=== PATIENT | female | born 1980 | race Caucasian/White ===

== ENCOUNTER → 2018-10-16 10:54 | Outpatient (CLI) | payer OTHER, SELFPAY ==
[2017-10-08 06:17] VITALS: BMI 36.9
[2018-10-16 14:11] LABS: hCG Titer Quant., Serum 63 mIU/mL (<9 non-preg)
== END ==
PROVIDERS: Visit Provider Obstetrics & Gynecology
DX: O20.0 Threatened abortion (principal)
CPT/HCPCS: 84702; 84703

== ENCOUNTER → 2018-10-20 14:25 | Outpatient (CLI) | payer OTHER, SELFPAY ==
[2017-10-08 06:17] VITALS: BMI 36.9
[2018-10-20 18:15] LABS: hCG Titer Quant., Serum 68 mIU/mL (<9 non-preg)
== END ==
PROVIDERS: Visit Provider Obstetrics & Gynecology
DX: O03.9 Complete or unspecified spontaneous abortion without complication (principal)
CPT/HCPCS: 36415; 84702

== ENCOUNTER → 2018-10-22 15:10 | Outpatient (CLI) | payer OTHER, SELFPAY ==
[2017-10-08 06:17] VITALS: BMI 36.9
[2018-10-22 16:22] LABS: hCG Titer Quant., Serum 107 mIU/mL (<9 non-preg)
--- OUTSIDE RECORDS SUMMARY | 2018-12-27 14:28 | XMS RPT_ITS ---
:1980 Author Organization [facility] Care Team Providers Name Role Phone Margy Arzola Attending Unavailable Primay Care Physicia, No Primary Care Unavailable Margy Arzola Attending Unavailable Primay Care Physicia, No Primary Care Unavailable Dariusz, Margy Attending Unavailable Primay Care Physicia, No Primary Care Unavailable Lizs, Margy Attending Unavailable Primay Care Physicia, No Primary Care Unavailable Lizs, Margy Attending Unavailable Primay Care Physicia, No Primary Care Unavailable PROBLEMS PROBLEMS No Problem Records FoundPROCEDURES PROCEDURES No Procedure Records FoundRESULTS RESULTS CBC-COMPLETE BLOOD CNT Collected: 10/31/2018 Status: F Source: FANNY NO DIFF 11:40 AM [facility] REPOSITORY TYPE CODE TESTS RESULT OUT OF RANGE REFERENCE UNITS LAB L100.1000 4.4-11.0 K/mm3 Low WBC 3.8 LAB L100.1200 4.2-5.4 M/mm3 Normal RBC 4.65 LAB L100.1300 12.0-15.0 g/dl Normal HGB 13.1 LAB L100.1400 37-47 % Normal HCT 40.0 LAB L100.1500 81-99 fL Normal MCV 86.0 LAB L100.1600 27.0-32.0 pg Normal MCH 28.2 LAB L100.1700 32-36 g/gl Normal MCHC 32.8 LAB L100.1810 11.6-14.6 % Normal RDW CV 12.9 LAB L100.1820 35.1-43.9 fl Normal RDW SD 40.5 LAB L100.1900 150-450 K/mm3 Normal PLT 215 LAB L100.2000 6.2-12.0 fl Normal MPV 8.8 Performed By: #### L100.0500 #### [facility] [address] [place], [address] HCG TITER QUANT., Collected: 10/31/2018 Status: F Source: FANNY SERUM 11:40 AM [facility] REPOSITORY TYPE CODE TESTS RESULT OUT OF RANGE REFERENCE UNITS LAB L700.8000 <9 non-preg mIU/mL High HCG 523 QUANT. Performed By: #### L700.8000 #### [facility] [address] [place], [address] COMPREHENSIVE METABOLIC Collected: 10/31/2018 Status: F Source: FANNY SARABIA 11:40 AM [facility] REPOSITORY TYPE CODE TESTS RESULT OUT OF RANGE REFERENCE UNITS LAB L501.0100 74-106 mg/dL Normal GLU 87 Result Comment: Please note revised GLUCOSE reference range effective 2017. LAB L501.1000 7-18 mg/dL Normal BUN 11 LAB L501.1100 0.55-1.02 mg/dL Normal CREAT,SERUM 0.78 Result Comment: The validity of the calculated GFR AND GFRAA in patients over 70 years has not been determined. Clinical correlation is essential. LAB L501.1110 >60 mL/min Normal EST GFR 87 Result Comment: Non- GFR Calc LAB L501.1115 >60 mL/min Normal EST GFR - AA 105 Result Comment: GFR Calc LAB L501.1255 ml/min Normal Estimated CRCL 91.55 LAB L501.1300 10-20 RATIO Normal BUN/CRE 14.0 LAB L501.1500 6.4-8. g/dL Normal 2 T PROT 7.6 LAB L501.1800 3.2-5. g/dL Normal 0 ALB 4.2 LAB L501.1950 2.2-4. g/dL Normal 2 GLOB 3.4 LAB L501.2000 0.9-2. RATIO Normal 4 A/G 1.2 LAB L501.2200 8.5-10 mg/dL Low .1 CA 8.4 LAB L501.4100 15-37 U/L Normal AST 24 LAB L501.4305 45-117 U/L Normal ALK P 107 LAB L501.4405 13-56 U/L Normal ALT 36 LAB L501.4600 0.20-1 mg/dL Normal .00 T BILI 0.30 LAB L501.5300 136-14 mmol/L Normal 5 NA 139 LAB L501.5600 3.5-5. mmol/L Normal 1 K 3.7 LAB L501.5900 98-107 mmol/L Normal CL 106 LAB L501.6100 21.0-3 mmol/L Normal 2.0 CO2 26.0 LAB L501.6200 5-15 Normal GAP 7 Performed By: #### L500.4050 #### [facility] [address] [place], [address] HCG TITER QUANT., Collected: 10/29/2018 Status: F Source: FANNY SERUM 8:35 AM [facility] REPOSITORY TYPE CODE TESTS RESULT OUT OF RANGE REFERENCE UNITS LAB L700.8000 <9 non-preg mIU/mL High HCG 384 QUANT. Performed By: #### L700.8000 #### [facility] [address] [place], [address] HCG TITER QUANT., Collected: 10/22/2018 Status: F Source: FANNY SERUM 3:13 PM [facility] REPOSITORY TYPE CODE TESTS RESULT OUT OF RANGE REFERENCE UNITS LAB L700.8000 <9 non-preg mIU/mL High HCG 107 QUANT. Performed By: #### L700.8000 #### [facility] [address] [place], [address] HCG TITER QUANT., Collected: 10/20/2018 Status: F Source: FANNY SERUM 2:28 PM [facility] REPOSITORY TYPE CODE TESTS RESULT OUT OF RANGE REFERENCE UNITS LAB L700.8000 <9 non-preg mIU/mL High HCG 68 QUANT. Performed By: #### L700.8000 #### [facility] [address] [place], [address] HCG TITER QUANT., Collected: 10/16/2018 Status: F Source: FANNY SERUM 9:20 AM [facility] REPOSITORY TYPE CODE TESTS RESULT OUT OF RANGE REFERENCE UNITS LAB L700.8000 <9 non-preg mIU/mL High HCG 63 QUANT. Performed By: #### L700.8000 #### [facility] [address] [place], [address] ALLERGIES ALLERGIES DATE TYPE / CODE NAME / CODE REACTION SEVERITY SOURCE 10/08/2017 Drug No Known Unknown [facility] Allergy/4160 Allergies/F00 [facility] [address](SNOMED 4891967(RXNOR Repository CT) M) ENCOUNTERS ENCOUNTERS ADMIT/DISCHARGE ACCOUNT ADMITTING ENCOUNTER LOCATION SOURCE NUMBER CLASS 10/31/2018 [id number] Ambulatory [address] ing:WOBLAB Repository 10/29/2018 [id number] Ambulatory Markle Markle 4 [facility] ing:WOBLAB Repository 10/22/2018 [id number] Ambulatory Fanny Fanny 7 [facility] ing:WOBL[place] Repository 10/20/2018 [id number] Ambulatory Fanny Fanny 3 [facility] ing:[place] Repository 10/16/2018 [id number] Ambulatory Markle Markle 8 [facility] ing:LABSPEC Repository PAYERS PAYERS ENCOUNTER GUARANTOR PAYER SUBSCRIBER SOURCE 10/31/2018 Temi Mejia Primary Insurance:[facility] Liu Wolff [id number] [facility]: [address] Number: Repository [id number]: [phone]) [id number] [phone] (HP) Date:0503-04-15EX [address] [address], [place] [address]CT: CHECK WEBSITE 10/31/2018 Secondary NOT GIVENUNK Markle Insurance:SELF PAY [facility] Number: Effective Repository Date:2018-10-31 10/29/2018 Temi Mejia Primary Insurance:[facility] Liu Wolff [id number] [facility]: [address] Number: Repository [id number]: ([phone]) [id number] [phone] (HP) Date:0513-25-99XY [address] [address], [place] [address]QN: CHECK WEBSITE 10/29/2018 Secondary NOT GIVENUNK Fanny Insurance:SELF PAY [facility] Number: Effective Repository Date:2018-10-29 10/22/2018 Temi Mejia Primary Insurance:[facility] Liu Vegaer1350 [facility]: [address] Number: Repository [id number]: [phone]) [id number] [phone] (HP) Date:0907-06-80TL [address] [address], [place] [address]SF: CHECK WEBSITE 10/22/2018 Secondary NOT GIVENUNK Markle Insurance:SELF PAY [facility] Number: Effective Repository Date:2018-10-22 10/20/2018 Temi Mejia Primary Insurance:[facility] Liu Wolff [id number] [facility] Hospital[facility] [id number] Number: Repository [address]Zkx: [phone] [id number] [phone] () Date:8344-96-49JM [address] [address]ED[place]VLB, [place] [address]JW: CHECK WEBSITE 10/20/2018 Secondary NOT GIVENUNK Markle Insurance:SELF PAY [facility] Number: Effective Repository Date:2018-10-20 10/16/2018 Temi Mejia Primary Insurance:[facility] Liu Wolff [id number] [facility] Hospital[facility]: [facility] [id number] Number: Repository [id number]: ([phone] [id number] [phone] () Date:1625-70-93QV [address] [address], [place] [address]PF: CHECK WEBSITE 10/16/2018 Secondary NOT GIVENUNK Fanny Insurance:SELF PAY [facility] Number: Effective Repository Date:2018-10-16
== END ==
PROVIDERS: Visit Provider Obstetrics & Gynecology
DX: O03.9 Complete or unspecified spontaneous abortion without complication (principal)
CPT/HCPCS: 36415; 84702

== ENCOUNTER → 2018-10-29 08:32 | Outpatient (CLI) | payer OTHER, SELFPAY ==
[2018-10-29 11:01] LABS: hCG Titer Quant., Serum 384 mIU/mL (<9 non-preg)
--- OUTSIDE RECORDS SUMMARY | 2018-12-31 03:32 | XMS RPT_ITS ---
[...] F Source: FANNY NO DIFF 11:40 AM [facility] REPOSITORY TYPE CODE TESTS RESULT OUT OF [...] MPV 8.8 Performed By: #### L100.0500 #### [facility] [address] [place], [address] HCG TITER QUANT., Collected: 10/31/2018 Status: F Source: FANNY SERUM 11:40 AM [facility] REPOSITORY TYPE CODE TESTS RESULT OUT OF RANGE REFERENCE UNITS LAB L700.8000 <9 non-preg mIU/mL High HCG 523 QUANT. Performed By: #### L700.8000 #### [facility] [address] [place], [address] COMPREHENSIVE METABOLIC Collected: 10/31/2018 Status: F Source: FANNY SARABIA 11:40 AM [facility] REPOSITORY TYPE CODE TESTS RESULT OUT OF [...] GAP 7 Performed By: #### L500.4050 #### [facility] [address] [place], [address] HCG TITER QUANT., Collected: 10/29/2018 Status: F Source: FANNY SERUM 8:35 AM [facility] REPOSITORY TYPE CODE TESTS RESULT OUT OF RANGE REFERENCE UNITS LAB L700.8000 <9 non-preg mIU/mL High HCG 384 QUANT. Performed By: #### L700.8000 #### [facility] [address] [place], [address] HCG TITER QUANT., Collected: 10/22/2018 Status: F Source: FANNY SERUM 3:13 PM [facility] REPOSITORY TYPE CODE TESTS RESULT OUT OF RANGE REFERENCE UNITS LAB L700.8000 <9 non-preg mIU/mL High HCG 107 QUANT. Performed By: #### L700.8000 #### [facility] [address] [place], [address] HCG TITER QUANT., Collected: 10/20/2018 Status: F Source: FANNY SERUM 2:28 PM [facility] REPOSITORY TYPE CODE TESTS RESULT OUT OF RANGE REFERENCE UNITS LAB L700.8000 <9 non-preg mIU/mL High HCG 68 QUANT. Performed By: #### L700.8000 #### [facility] [address] [place], [address] HCG TITER QUANT., Collected: 10/16/2018 Status: F Source: FANNY SERUM 9:20 AM [facility] REPOSITORY TYPE CODE TESTS RESULT OUT OF RANGE REFERENCE UNITS LAB L700.8000 <9 non-preg mIU/mL High HCG 63 QUANT. Performed By: #### L700.8000 #### [facility] [address] [place], [address] ALLERGIES ALLERGIES DATE TYPE / CODE NAME / CODE REACTION SEVERITY SOURCE 10/08/2017 Drug No Known Unknown [facility] Allergy/4160 Allergies/F00 [facility] [address](SNOMED [id number](RXNOR Repository CT) M) ENCOUNTERS ENCOUNTERS ADMIT/DISCHARGE ACCOUNT ADMITTING ENCOUNTER LOCATION SOURCE NUMBER CLASS 10/31/2018 [id number] Ambulatory [address] ing:[place] Repository 10/29/2018 [id number] Ambulatory Dudley Dudley 4 [facility] ing:WOBLAB Repository 10/22/2018 [id number] Ambulatory Fanny Fanny 7 [facility] ing:WOBLAB Repository 10/20/2018 [id number] Ambulatory Fanny Fanny 3 [facility] ing:WOBLAB Repository 10/16/2018 [id number] Ambulatory Dudley Dudley 8 [facility] ing:LABSPEC Repository PAYERS PAYERS ENCOUNTER GUARANTOR PAYER SUBSCRIBER SOURCE 10/31/2018 Temi Mejia Primary Insurance:[facility] Liu Wolff [id number] [facility]: [address] Number: Repository [id number]: [phone] [id number] [phone] (HP) Date:1878-40-99SZ [address] [address]FC, [place] [address]HO: CHECK WEBSITE 10/31/2018 Secondary NOT GIVENUNK Dudley Insurance:SELF PAY [facility] Number: Effective Repository Date:2018-10-31 10/29/2018 Temi Mejia Primary Insurance:[facility] Liu Wolff [id number] [facility]: [address] Number: Repository [id number]: ([phone]) [id number] [phone] (HP) Date:7405-48-10DP [address] [address]LG, [place] [address]ZY: CHECK WEBSITE 10/29/2018 Secondary NOT GIVENUNK Fanny Insurance:SELF PAY [facility] Number: Effective Repository Date:2018-10-29 10/22/2018 Temi Mejia Primary Insurance:[facility] Liu Vegaer1350 [facility]: [address] Number: Repository [id number]: [phone]) [id number] [phone] (HP) Date:8762-78-34YG [address] [address]JDT, [place] [address]AA: CHECK WEBSITE 10/22/2018 Secondary NOT GIVENUNK Dudley Insurance:SELF PAY [facility] Number: Effective Repository Date:2018-10-22 10/20/2018 Temi Mejia Primary Insurance:[facility] Liu Wolff [id number] [facility] [id number] Number: Repository [address]Bce: [phone] [id number] [phone] () Date:9984-82-08FN [address] [address]SQVG[place], [place] [address]RJ: CHECK WEBSITE 10/20/2018 Secondary NOT GIVENUNK Dudley Insurance:SELF PAY [facility] Number: Effective Repository Date:2018-10-20 10/16/2018 Temi eMjia Primary Insurance:[facility] Liu Wolff [id number] [facility] [id number] Number: Repository [id number]: ([phone]) [id number] [phone] () Date:6366-70-16KO [address] [address]XBFAFTZMJ, [place] [address]HL: CHECK WEBSITE 10/16/2018 Secondary NOT GIVENUNK Fanny Insurance:SELF PAY [facility] Number: Effective Repository Date:2018-10-16
== END ==
PROVIDERS: Visit Provider Obstetrics & Gynecology
DX: R10.9 Unspecified abdominal pain (principal)
CPT/HCPCS: 36415; 84702

== ENCOUNTER → 2018-10-31 11:32 | Outpatient (CLI) | payer OTHER, SELFPAY ==
[2018-10-31 11:53] LABS: Hemoglobin 13.1 g/dl (12.0-15.0); Mean Corp Hgb Conc 32.8 g/gl (32-36); Mean Corpuscular Hgb 28.2 pg (27.0-32.0); Mean Platelet Vol. 8.8 fl (6.2-12.0); Platelet Count 215 K/mm3 (150-450); RBC Distribution Width CV 12.9 % (11.6-14.6); RBC Distribution Width SD 40.5 fl (35.1-43.9); Red Blood Count 4.65 M/mm3 (4.2-5.4); White Blood Count 3.8 K/mm3 (4.4-11.0)
[2018-10-31 11:56] LABS: Scan Indicated on CBC? Y/N NO
[2018-10-31 12:35] LABS: hCG Titer Quant., Serum 523 mIU/mL (<9 non-preg)
[2018-10-31 12:36] LABS: ALB/GLOB Ratio 1.2 RATIO (0.9-2.4); AST(SGOT) 24 U/L (15-37); Alanine Aminotransfer ALT/SGPT 36 U/L (13-56); Albumin, Serum 4.2 g/dL (3.2-5.0); Alkaline Phosphatase 107 U/L (45-117); Anion Gap 7 (5-15); BUN 11 mg/dL (7-18); Calcium,Total 8.4 mg/dL (8.5-10.1); Chloride 106 mmol/L (98-107); Creatinine, Serum 0.78 mg/dL (0.55-1.02); EST Glomerular Filtration Rate 87 mL/min (>60); Est Glom Filt Rate - Afr Amer 105 mL/min (>60); Estimated Creatinine Clearance 91.55 ml/min; Globulin 3.4 g/dL (2.2-4.2); Glucose 87 mg/dL (74-106); Potassium 3.7 mmol/L (3.5-5.1); Protein, Total 7.6 g/dL (6.4-8.2); Sodium Level 139 mmol/L (136-145)
== END ==
PROVIDERS: Visit Provider Obstetrics & Gynecology
DX: O00.90 Unspecified ectopic pregnancy without intrauterine pregnancy (principal); Z3A.00 Weeks of gestation of pregnancy not specified
CPT/HCPCS: 36415; 80053; 84702; 85027

== ENCOUNTER → 2018-11-06 13:18 | Outpatient (CLI) | payer OTHER, SELFPAY ==
[2018-11-06 17:25] LABS: Hematocrit 38.8 % (37-47); Hemoglobin 12.7 g/dl (12.0-15.0); Mean Corp Hgb Conc 32.7 g/gl (32-36); Mean Corpuscular Hgb 28.1 pg (27.0-32.0); Mean Corpuscular Volume 85.8 fL (81-99); Mean Platelet Vol. 9.5 fl (6.2-12.0); Platelet Count 230 K/mm3 (150-450); RBC Distribution Width CV 12.6 % (11.6-14.6); RBC Distribution Width SD 39.2 fl (35.1-43.9); Red Blood Count 4.52 M/mm3 (4.2-5.4)
[2018-11-06 17:27] LABS: Scan Indicated on CBC? Y/N NO
[2018-11-06 17:30] LABS: Alanine Aminotransfer ALT/SGPT 38 U/L (13-56); Creatinine, Serum 0.88 mg/dL (0.55-1.02); EST Glomerular Filtration Rate 76 mL/min (>60); Est Glom Filt Rate - Afr Amer 92 mL/min (>60)
[2018-11-06 17:46] LABS: hCG Titer Quant., Serum 590 mIU/mL (<9 non-preg)
== END ==
PROVIDERS: Visit Provider Obstetrics & Gynecology
DX: O00.90 Unspecified ectopic pregnancy without intrauterine pregnancy (principal)
CPT/HCPCS: 36415; 82565; 84460; 84702; 84703; 85027

== ENCOUNTER → 2018-11-07 13:58 | Outpatient (CLI) | payer OTHER, SELFPAY ==
[2017-10-08 06:17] VITALS: BMI 36.9
[2018-11-07 14:53] LABS: hCG Titer Quant., Serum 555 mIU/mL (<9 non-preg)
== END ==
PROVIDERS: Visit Provider Obstetrics & Gynecology
DX: O00.90 Unspecified ectopic pregnancy without intrauterine pregnancy (principal); Z3A.00 Weeks of gestation of pregnancy not specified
CPT/HCPCS: 36415; 84702

== ENCOUNTER 2018-11-09 07:39 | Emergency (ER) | payer OTHER, SELFPAY ==
[2018-11-09 07:40] VITALS: BP 158/94; PULSE 99; RESP 16; TEMP 36.8; O2SAT 99; BMI 36.0
--- NOTE | 2018-11-09 08:05 | ED.VISSUMM ---
- ER Visit Summary Date of Service: 11/09/18 Chief Complaint: [] Ectopic on methotrexate therapy x2, vaginal bleeding pain to the left lower abdomen History of Present Illness: The patient is a 38 F [] history of ectopic diagnosed about 2 weeks ago when she was 7 weeks , her last quant hCG was 500, she was given methotrexate second dose IM Saturday she has had persistence of vaginal spotting and now the bleeding is slightly heavier she noticed a vague pain to the left side of the abdomen the pain was not severe just persistent, no vomiting no fever no cough she is followed by [employer] Dr. Arzola she came in for evaluation Physical Examination: [] Vital signs are within normal range General, no distress resting comfortably HEENT is generally unremarkable The neck is supple no adenopathy Cardiovascular, regular rate and rhythm Lungs, clear bilateral Abdomen, soft nontender, to deep aggressive palpation is really no findings to the left suprapubic or right lower quadrant or anywhere in the abdomen the flank is unremarkable, pelvic exam deferred at this time no pelvic room Extremities, no clubbing cyanosis or edema Neurologic, awake alert answering questions appropriately moving all 4 extremities Test Results: [] Emergency Department Course and Treatment: [] Clinically she looks well given her complaints screening labs are obtained ultrasound and will discuss with [employer] Screening labs CBC chemistry unremarkable, hCG quant 400, pelvic ultrasound per radiology shows fracture of the questionably represents gestational sac 7 weeks level of cervix right and left adnexa unremarkable, no free pelvic fluid, no pelvic masses otherwise, Spoke with [employer] on-call for patient discussed the case in detail they are comfortable with discharge home follow-up in the office the next few days patient believes she is scheduled to see them tomorrow, she will be given Floyd No. 4 tablets to use as needed, but she indicates actually she is feeling better and does not think she will need that medicine and agrees to follow-up and return for change in symptoms Treatment Plan: [] Disposition: [] Home stable Impression: [] Vaginal bleeding, , currently under treatment for ectopic This note was generated with [employer] software. It may contain incorrect words, spelling, and punctuation that were not noted in review of the chart prior to signing ED Disposition - Plan for ED Patient: Referrals: Care Physician,No Primary [Primary Care Provider] -
[2018-11-09 08:10] LABS: Absolute Lymphocyte Count 1.57 X10^3/ul (0.83-4.51); Absolute Neutrophil Count 2.5 X10^3/uL (2.0-7.7); Eosinophil# 0.13 X10^3/uL; Eosinophils% 2.9 % (0-5); Hematocrit 37.7 % (37-47); Hemoglobin 13.2 g/dl (12.0-15.0); Lymphocyte # 1.57 X10^3/ul (4.0); Lymphocyte % 35.4 % (19-41); Mean Corpuscular Hgb 29.7 pg (27.0-32.0); Mean Corpuscular Volume 84.7 fL (81-99); Mean Platelet Vol. 8.5 fl (6.2-12.0); Monocyte# 0.23 X10^3/uL; Monocyte% 5.2 % (0-10); Neutrophil % 56.3 % (47-70); Platelet Count 211 K/mm3 (150-450); RBC Distribution Width CV 12.3 % (11.6-14.6); RBC Distribution Width SD 37.1 fl (35.1-43.9); Red Blood Count 4.45 M/mm3 (4.2-5.4); White Blood Count 4.4 K/mm3 (4.4-11.0)
[2018-11-09 08:11] LABS: POSITIVE COUNT NO; POSITIVE DIFFERENTIAL NO; POSITIVE MORPHOLOGY NO
[2018-11-09] MEDS: 0.9% Normal Saline 1,000 ML 1000 ML IV (08:20)
[2018-11-09] MEDS: Ondansetron 4 MG/2 ML Vial IV (08:20)
[2018-11-09 08:28] LABS: Anion Gap 8 (5-15); BUN 10 mg/dL (7-18); Calcium,Total 8.7 mg/dL (8.5-10.1); Chloride 107 mmol/L (98-107); Creatinine, Serum 0.83 mg/dL (0.55-1.02); EST Glomerular Filtration Rate 82 mL/min (>60); Est Glom Filt Rate - Afr Amer 99 mL/min (>60); Estimated Creatinine Clearance 89.37 ml/min; Glucose 91 mg/dL (74-106); Potassium 3.9 mmol/L (3.5-5.1); Sodium Level 142 mmol/L (136-145)
--- NOTE | 2018-11-09 08:31 | US_ITS ---
STUDY: FIRST TRIMESTER OBSTETRICAL ULTRASOUND REASON FOR EXAM: Female, 38 years old. Bleeding. Possible ectopic . LMP: 09/02/2018. TECHNIQUE: Transvaginal TECHNICAL QUALITY: Adequate. PRIOR ULTRASOUND: None. FINDINGS: There is a fluid collection in the cervical region measuring about 7 mm which could represent gestational sac. There is no demonstrated yolk sac. The placenta is non-visualized. There is an echogenic structure within it which could represent pole measuring about 7 mm crown-rump length corresponding to approximately 6 weeks and 5 days. No cardiac activity is noted. The estimated gestation age (EGA) by LMP is 9 weeks, 5 days. The estimated date of delivery (KHADRA) by LMP is 06/09/2019. The estimated gestation age (EGA) by US is 9 weeks, 4 days. The estimated date of delivery (KHADRA) by US is 07/01/2019. The uterus measures 9.7 x 5.6 x 4.3 cm. There is no demonstrated uterine fibroid. The right ovary measures 3.8 x 2.1 x 2 cm. There is no right ovarian cyst. There is no visualized right adnexal mass or complex lesion. The left ovary measures 5.2 x 4.4 x 2.8 cm. There is a 3.2 x 3 x 3.1 cm cyst in the left ovary. There is another cyst measuring about 2.2 x 1.9 x 2.1 cm. There is no visualized left adnexal mass or complex lesion. There is minimal fluid in the cul de sac. US/Transvaginal w/Preg US IMPRESSION: 1. Findings consistent with gestational sac in the cervical region with pole corresponding to approximately 6 weeks and 4 days however no cardiac activity is seen. 2. Correlation with beta-hCG levels and close follow-up examination are recommended. 3. Left ovarian cysts. Electronically Signed: Rik Nicole MD at 11:15 EST Tel , Service support ,
[2018-11-09 08:37] LABS: hCG Titer Quant., Serum 409 mIU/mL (<9 non-preg)
[2018-11-09] MEDS: morphine 8 MG/ML Syringe IV (08:56)
[2018-11-09] MEDS: proMETHazine 25 MG/ML Syringe 12.5 MG IV (09:30)
[2018-11-09 09:32] VITALS: BP 139/81; PULSE 87; RESP 20; O2SAT 98
[2018-11-09 10:43] LABS: Bacteria 0 SEEN /hpf (None Seen); Mucous, Urine 0 SEEN /hpf (<or=2+); White Blood Cells 0 SEEN /hpf (0-5)
[2018-11-09 10:46] LABS: Color, Urine Yellow (Yellow); Glucose, Dipstick Normal (Normal); Ketone-Dipstick Negative (Negative); Leukocyte Esterase-Dipstick 25 /ul (Negative); Nitrite-Dipstick Negative (Negative); Occult Blood-Urine 250 /ul (Negative); Protein-Dipstick 30 mg/dl (Negative); Urine Bilirubin Dipstick Negative (Negative); Urine Clarity Cloudy (Clear); Urine Urobilinogen Normal (Normal)
[2018-11-09 10:56] LABS: Red Blood Cells-Urine > 100 SEEN /hpf (0-5); Squamous Epithelial Cells - UA 0-5 SEEN /hpf (5-10)
[2018-11-09 11:13] VITALS: BP 142/75; PULSE 76; RESP 16
--- NOTE | 2018-11-09 11:44 | ED.DEP ---
ED Disposition - Plan for ED Patient: Instructions: ED Miscarriage Incom Prescriptions: Hydrocodone Bitart/Apap 5-325 [[place] 5MG-325MG] 1 tab PO Q4H PRN PRN 2 Days #7 tab PRN Reason: Pain Referrals: Care Physician,No Primary [Primary Care Provider] -
--- NOTE | 2018-11-09 12:02 | DCINST.ED_ITS ---
ED Disposition - Plan for ED Patient: Instructions: ED Miscarriage Incom Prescriptions: Hydrocodone Bitart/Apap 5-325 [[place] 5MG-325MG] 1 tab PO Q4H PRN PRN 2 Days #7 tab PRN Reason: Pain Ondansetron [Zofran Odt] 4 mg PO Q8H PRN PRN #10 tablet PRN Reason: Nausea Referrals: Care Physician,No Primary [Primary Care Provider] -
== END 2018-11-09 12:13 | disposition home or self-care (01) ==
LOC: ED 08:23
PROVIDERS: Emergency Provider Emergency Medicine
DX: O00.90 Unspecified ectopic pregnancy without intrauterine pregnancy (principal); O08.89 Other complications following an ectopic and molar pregnancy; Z3A.08 8 weeks gestation of pregnancy
CPT/HCPCS: 76817; 80048; 81001; 84702; 85025; 87086; 87088; 96361; 96374; 96375; 99283; A4216; J2405

== ENCOUNTER → 2018-11-10 09:43 | Outpatient (CLI) | payer OTHER, SELFPAY ==
[2018-11-09 07:40] VITALS: BMI 36.0
[2018-11-10 13:23] LABS: hCG Titer Quant., Serum 339 mIU/mL (<9 non-preg)
== END ==
PROVIDERS: Visit Provider Obstetrics & Gynecology
DX: O00.90 Unspecified ectopic pregnancy without intrauterine pregnancy (principal); Z3A.00 Weeks of gestation of pregnancy not specified
CPT/HCPCS: 36415; 84702; 84703

== ENCOUNTER → 2018-11-13 15:05 | Outpatient (CLI) | payer OTHER, SELFPAY ==
[2018-11-09 07:40] VITALS: BMI 36.0
[2018-11-13 17:20] LABS: Hematocrit 38.3 % (37-47); Hemoglobin 12.5 g/dl (12.0-15.0); Mean Corp Hgb Conc 32.6 g/gl (32-36); Mean Corpuscular Hgb 28.5 pg (27.0-32.0); Mean Corpuscular Volume 87.2 fL (81-99); Mean Platelet Vol. 9.6 fl (6.2-12.0); Platelet Count 237 K/mm3 (150-450); RBC Distribution Width CV 12.4 % (11.6-14.6); RBC Distribution Width SD 37.7 fl (35.1-43.9); Red Blood Count 4.39 M/mm3 (4.2-5.4); White Blood Count 5.8 K/mm3 (4.4-11.0)
[2018-11-13 17:21] LABS: Scan Indicated on CBC? Y/N NO
[2018-11-13 17:34] LABS: AST(SGOT) 29 U/L (15-37); Alanine Aminotransfer ALT/SGPT 68 U/L (13-56); Creatinine, Serum 0.95 mg/dL (0.55-1.02); EST Glomerular Filtration Rate 70 mL/min (>60); Est Glom Filt Rate - Afr Amer 85 mL/min (>60)
[2018-11-13 18:11] LABS: hCG Titer Quant., Serum 176 mIU/mL (<9 non-preg)
== END ==
PROVIDERS: Visit Provider Obstetrics & Gynecology
DX: O00.90 Unspecified ectopic pregnancy without intrauterine pregnancy (principal)
CPT/HCPCS: 36415; 82565; 84450; 84460; 84702; 85027

== ENCOUNTER → 2018-11-20 15:11 | Outpatient (CLI) | payer OTHER, SELFPAY ==
[2018-11-09 07:40] VITALS: BMI 36.0
[2018-11-20 17:17] LABS: hCG Titer Quant., Serum 53 mIU/mL (<9 non-preg)
== END ==
PROVIDERS: Visit Provider Obstetrics & Gynecology
DX: O00.90 Unspecified ectopic pregnancy without intrauterine pregnancy (principal)
CPT/HCPCS: 36415; 84702

== ENCOUNTER → 2018-11-27 15:19 | Outpatient (CLI) | payer OTHER, SELFPAY ==
[2018-11-09 07:40] VITALS: BMI 36.0
[2018-11-27 17:36] LABS: hCG Titer Quant., Serum 36 mIU/mL (<9 non-preg)
== END ==
PROVIDERS: Visit Provider Obstetrics & Gynecology
DX: O00.90 Unspecified ectopic pregnancy without intrauterine pregnancy (principal)
CPT/HCPCS: 84702

== ENCOUNTER → 2018-12-06 12:18 | Outpatient (CLI) | payer OTHER, SELFPAY ==
[2018-11-09 07:40] VITALS: BMI 36.0
[2018-12-06 12:59] LABS: hCG Titer Quant., Serum 1 mIU/mL (<9 non-preg)
== END ==
PROVIDERS: Referring Provider Obstetrics & Gynecology; Visit Provider Obstetrics & Gynecology
DX: O00.90 Unspecified ectopic pregnancy without intrauterine pregnancy (principal); Z3A.00 Weeks of gestation of pregnancy not specified
CPT/HCPCS: 36415; 84702

== ENCOUNTER → 2020-04-20 16:49 | Outpatient (CLI) | payer OTHER, SELFPAY ==
[2020-04-20 13:42] VITALS: BMI 36.0
[2020-04-27 09:41] LABS: HPV APTIMA, High Risk Negative (Negative)
== END ==
PROVIDERS: Referring Provider Nurse Practitioner Women's Health; Visit Provider Nurse Practitioner Women's Health
DX: Z12.4 Encounter for screening for malignant neoplasm of cervix (principal)
CPT/HCPCS: 87624; 88175; G0145

== ENCOUNTER → 2020-04-25 16:31 | Outpatient (CLI) | payer OTHER, SELFPAY ==
[2020-04-20 13:42] VITALS: BMI 36.0
--- NOTE | 2020-04-25 16:32 | US_ITS ---
STUDY: ULTRASOUND OF THE FEMALE PELVIS - COMPLETE REASON FOR EXAM: Female, 39 years old. Enlarged uterus palpated by doctor. LMP: April 06, 2020. TECHNIQUE: Transabdominal and Transvaginal TECHNICAL QUALITY: Adequate. COMPARISON: None. FINDINGS: The uterus is anteverted and is in a midline position. The uterus measures 9.7 x 5.7 x 4.6 cm. There is a Nabothian cyst of the cervix. There is a septated versus arcuate uterus. The endometrium measures 10 mm in thickness, and is hyperechoic. There is no demonstrated endometrial mass. There is no demonstrated myometrial mass. I.U.D. - The patient does not have an I.U.D. The right ovary is visualized. The right ovary measures 3.5 x 3.4 x 2.4 cm. There are multiple follicles of the right ovary with a dominant 2.0 x 1.5 x 1.5 cm cyst. There is no visualized right adnexal mass or complex lesion. There is normal arterial and normal venous vascularity. The left ovary is visualized. The left ovary measures 14.6 x 14.0 x 7.9 cm. There are multiple ovarian cysts. The largest measures 8.6 x 12.8 x 8.2 cm. There is no visualized left adnexal mass or complex lesion. There is normal arterial and normal venous vascularity. There is minimal fluid in the cul-de-sac. The pre void volume of the bladder was 114 ml. The urinary bladder appears grossly normal. Polycystic ovary disease: No. US/Pelvic (Non ) IMPRESSION: 1. Septate versus arcuate uterus with normal endometrial thickness. There is no evidence of fibroids. 2. Multiple large left ovarian cysts. 3. Normal right ovary. Electronically Signed: Wally Okeefe DO at 21:05 EDT Tel [phone], Service support ,
--- NOTE | 2020-04-25 16:32 | US_ITS ---
STUDY: ULTRASOUND OF THE FEMALE PELVIS - COMPLETE REASON FOR EXAM: Female, 39 years old. Enlarged uterus palpated by doctor. LMP: April 06, 2020. TECHNIQUE: Transabdominal and Transvaginal TECHNICAL QUALITY: Adequate. COMPARISON: None. FINDINGS: The uterus is anteverted and is in a midline position. The uterus measures 9.7 x 5.7 x 4.6 cm. There is a Nabothian cyst of the cervix. There is a septated versus arcuate uterus. The endometrium measures 10 mm in thickness, and is hyperechoic. There is no demonstrated endometrial mass. There is no demonstrated myometrial mass. I.U.D. - The patient does not have an I.U.D. The right ovary is visualized. The right ovary measures 3.5 x 3.4 x 2.4 cm. There are multiple follicles of the right ovary with a dominant 2.0 x 1.5 x 1.5 cm cyst. There is no visualized right adnexal mass or complex lesion. There is normal arterial and normal venous vascularity. The left ovary is visualized. The left ovary measures 14.6 x 14.0 x 7.9 cm. There are multiple ovarian cysts. The largest measures 8.6 x 12.8 x 8.2 cm. There is no visualized left adnexal mass or complex lesion. There is normal arterial and normal venous vascularity. There is minimal fluid in the cul-de-sac. The pre void volume of the bladder was 114 ml. The urinary bladder appears grossly normal. Polycystic ovary disease: No. US/Transvaginal Non- IMPRESSION: 1. Septate versus arcuate uterus with normal endometrial thickness. There is no evidence of fibroids. 2. Multiple large left ovarian cysts. 3. Normal right ovary. Electronically Signed: Wally Okeefe DO at 21:05 EDT Tel [phone], Service support ,
== END ==
PROVIDERS: Referring Provider Nurse Practitioner Women's Health; Visit Provider Nurse Practitioner Women's Health
DX: N85.2 Hypertrophy of uterus (principal)
CPT/HCPCS: 76830; 76856

== ENCOUNTER → 2020-04-27 12:25 | Outpatient (CLI) | payer OTHER, SELFPAY ==
[2020-04-20 13:42] VITALS: BMI 36.0
[2020-04-28 15:49] LABS: Carcinoembryonic Antigen 0.7 ng/mL (0.0-4.7)
== END ==
PROVIDERS: Referring Provider Nurse Practitioner Women's Health; Visit Provider Nurse Practitioner Women's Health
DX: N83.202 Unspecified ovarian cyst, left side (principal)
CPT/HCPCS: 36415; 82378; 86304

== ENCOUNTER 2020-05-17 08:39 | Day surgery (SDC) | payer OTHER, SELFPAY ==
[2020-05-02 11:21] VITALS: BMI 36.0
--- NOTE | 2020-05-16 06:41 | PCM.HPOB.BLA ---
- Problem List (1) Ovarian cyst, left Status: Acute Comment: multiple cystic left ovary plan laparoscopic bilateral salpingectomy and left oophorectomy and CW. borderline CA125 no malignant features on ultrasound. 13 x 8 x 9 cm. History and Physical Date of Admission: 05/17/20 Intake Vital Signs 05/02/20 BMI 36.0 05/02/20 Height 5 ft 7 in 05/02/20 Weight: 235 lb 05/02/20 BMI 36.8 05/02/20 BP 118/82 H Intake Visit Reasons: Surgery consult per , [place] Chief Complaint: surgical consult for ovarian cyst Senior Qc Technician Required: No Is patient in pain?: No Allergies No Known Allergies Allergy (Verified 05/02/20 11:20) Medications multivitamin 1 tab PO DAILY 04/20/20 [History Confirmed 05/02/20] Is last menstrual period known: Yes Last Menstral Period: 04/06/20 Post menopausal: No Patient : No : No PFSH Medical History Hay fever (Acute) Surgical History Hx of section (Acute) [place] teeth extracted (Acute) Social History (Updated 05/02/20 @ 15:[address] 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 she had a pelvic exam at her annual and an adnexal mass was palpated, on ultrasound shows multicystic lesions. ca125 borderline but no other malignant features, low suspicion. patient has aching in lower pelvis especially more uncomfrtable at night. Female Reproductive History Last Menstral Period: 04/06/20 Pregancy History 6 Elective abortions Hx Para 2 Spontaneous abortions 3 Hx # Term Pregnancies Ectopic pregnancies 1 Hx # Pregnancies Multiple births # of living children 2 Past Pregnancies Del. Date Name GA/Weeks Outcome Route Bth Weight [facility] Debby live - full term 10/08/17 Kemar live - full term ROS Const Constitutional: Denies fatigue, weight gain or weight loss Cardio Card: Denies chest pain Resp Resp: Denies cough or shortness of breath with activity GI GI: Denies abdominal pain, bloating, change in stools, constipation or vomiting : Reports as per HPI and pelvic pain; denies difficulty urinating, urinary frequency, urinary incontinence, urinary urgency, vaginal discharge or vaginal itching Exam Const General: cooperative, healthy appearing, comfortable, no acute distress, well developed Nutritional Appearance: average body habitus Orientation: alert HENMT Head: normal to inspection, normocephalic Neck Neck: normal visual inspection, trachea midline Thyroid: thyroid normal Resp Effort & Inspection: normal respiratory effort GI Inspection: normal to inspection, non-distended Palpation: soft, no hepatosplenomegaly Skin General: no rashes or lesions noted Assessment & Plan Problems 1. Ovarian cyst, left N83.202 multiple cystic left ovary plan laparoscopic bilateral salpingectomy and left oophorectomy and CW. borderline CA125 no malignant features on ultrasound. 13 x 8 x 9 cm. Plan After discussing the patient's diagnosis and treatment plan options, patient wishes to proceed with surgical management. I have discussed with the patient the risks, benefits, and alternatives of the procedure which include but are not limited to risks of anesthesia, bleeding, infection, possible damage to bowel, bladder, or surrounding vasculature which could lead to additional surgery to evaluate any complications. Patient agrees to procedure and wishes to proceed. Orders Orders: Cancer Antigen 125 Today N83.202 Coding Level of Care Code Off vis,est,level 4 Diagnoses Ovarian cyst, left N83.202 UPDATE- I have seen the patient and performed any clinically relevant updates to the history and physical exam. Mirna Swann MD
[2020-05-17] VITALS (10 sets, daily range): BP systolic 100–129; BP diastolic 62–87; PULSE 62–103; RESP 14–18; TEMP 36.2–37.4; O2SAT 93–99; BMI 37.0
--- NOTE | 2020-05-17 08:28 | PCM.OPRPT ---
Problem List (1) Ovarian cyst, left Status: Acute Comment: multiple cystic left ovary plan laparoscopic bilateral salpingectomy and left oophorectomy and CW. borderline CA125 no malignant features on ultrasound. 13 x 8 x 9 cm. 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 Bladder was drained of clear urine and SCDs were on preoperatively. Uterus was sounded and a uterine manipulator was placed after dilating. Attention was then paid to the abdominal portion of the procedure and the umbilicus was elevated with towel clamps and injected with Marcaine and after a 12 mm incision was made and the Veress needle was entered into the abdomen confirmed to be intra-abdominal with a low opening pressure of less than 5 mmHg. Abdomen was insufflated with CO2 gas and a 12 mm optical trocar was placed under direct visualization. A right and left lower quadrant 5 mm ports were placed under direct visualization. Liver and upper abdomen were visualized notably within normal limits and no other gross abnormalities were seen in the abdomen. All instruments removed from the abdomen after gas was desufflated. Port sites were closed with 3-0 Monocryl Steri's and op sites were applied. All instruments removed from the vagina and patient was awoken and taken recovery in stable condition. Grafts/Implants Used: none - Complications none - Admit VTE Documentation VTE Present on Admission: No VTE Mechan Device Prophylaxis: SCD's Multi Select Codes - Urinary/Genital Urinary/Genital CPT Codes: 81592 Laproscopic BS/O
--- NOTE | 2020-05-17 08:31 | DCINST_ITS ---
Discharge Diet: No Restrictions - Increase fluid intake for the next 48 hours. Discharge Activity: Return to Normal Activity, May Drive - when you are no longer taking narcotic pain medications., May Shower, May Take a Tub Bath - in 7 days Additional Activity Instructions:: Ambulate often the next week after surgery. Nothing in the vagina for 5 days. Call your doctor if your incision/area has: Continuous Slow Oozing, Sudden Increased Bleeding, Increased Pain/ Swelling, Increased Redness, Foul Smelling Discharge Call your doctor if you observe: Fever of 101 or Higher Allergies/Adverse Reactions: Allergies No Known Allergies Allergy (Verified 05/10/20 14:07) Medications to take at Discharge multivitamin 1 tab PO DAILY 04/20/20 Naproxen [Naprosyn] 250 - 500 mg PO Q8H PRN PRN #30 tab 05/17/20 Oxycodone HCl/Acetaminophen [Percocet 5-325] 1 - 2 tablet PO Q6H PRN PRN 7 Days #15 tablet 05/17/20 The following prescriptions were given: Naproxen [Naprosyn] 250 - 500 mg PO Q8H PRN PRN #30 tab PRN Reason: MILD PAIN Transmission Status: Pending to [facility] Oxycodone HCl/Acetaminophen [Percocet 5-325] 1 - 2 tablet PO Q6H PRN PRN 7 Days #15 tablet PRN Reason: Pain Transmission Status: Sent to [facility] Orders to be completed after discharge: Type & Screen - PAT ONLY Time Frame: 05/17/20, Facility: [facility], Location: Laboratory CBC-Complete Blood Cnt No Diff Time Frame: 05/17/20, Facility: [facility], Location: Laboratory ,Urine Time Frame: 05/17/20, Facility: [facility], Location: Laboratory Primary Care Physician: Care Physician,No Primary [Primary Care Provider] - Test Results: Test results from this visit will be discussed in further detail at your follow- up appointment, if applicable. Please Follow Up With: Mirna Swann MD - [phone]
[2020-05-17 09:14] LABS: Hematocrit 40.8 % (37-47); Hemoglobin 13.7 g/dL (12.0-15.0); Mean Corp Hgb Conc 33.6 g/dL (32-36); Mean Corpuscular Hgb 28.7 pg (27.0-32.0); Mean Corpuscular Volume 85.5 fL (81-99); Mean Platelet Vol. 8.7 fl (6.2-12.0); Platelet Count 244 K/mm3 (150-450); RBC Distribution Width CV 11.9 % (11.6-14.6); Red Blood Count 4.77 M/mm3 (4.2-5.4); White Blood Count 6.1 K/mm3 (4.4-11.0)
[2020-05-17 09:15] LABS: Internal QC Validated? YES +Cl - CLEAR BKGD; Pregnancy, Urine Negative Negative
[2020-05-17] MEDS: Bupivacaine 0.25% 30 ML Vial (10:10)
--- NOTE | 2020-05-17 10:15 | OV_PTH ---
PATIENT: FLAVIO HAWKINS LOC: [facility] [place] U#:[id number] AGE/SX: 39/F ROOM: RE05/17/[address]: Dr. Mirna Swann MD : 1980 BED: DIS: 05/17/2020 SPEC #: [id number] RECD: 05/17/20 11:48 STATUS: RUPAL REFaby #: [id number] WALDO: 05/17/20 10:[address]: Mirna Swann DEPT: SURGICAL PATHOLOGY RECD BY: Chauncey Gutiérrez ENTERED: 05/17/20 11:53 SP TYPE: OVARY OTHR DR: No Primary Care Phys Tissues: Left ovary Procedures: Special Stain Group II Mucicarmine Stain (control) Surgery Specimen Level IV Surgery Specimen Level V HEADER OPERATION: Laparoscopic bilateral salpingectomy, left oophorectomy PRE-OP DIAGNOSIS: Left ovarian cyst TISSUE SUBMITTED: Bilateral fallopian tubes and left ovary MICROSCOPIC DIAGNOSIS Bilateral fallopian tubes and left ovary, bilateral salpingectomy and left oophorectomy: Bilateral fallopian tubes - no pathologic diagnosis. 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 - Mesothelial inclusion cysts. SJ:rg 05/18/20 COMMENT Mucin stain with matched control is used in the evaluation of the specimen and focally positive in epithelial lining of cyst. Case has been reviewed in consultation with Dr. Gomez who concurs with the above diagnosis. IDC:AM MICROSCOPIC DESCRIPTION Slides are reviewed. GROSS DESCRIPTION Received in fixative is one container labeled with the patient's name and designated bilateral fallopian tubes and left ovary. The specimen consists of one intact fallopian tube, portion of second fallopian tube, one smaller segment of fallopian tube, one segment of fallopian tube consisting of fimbrial end, one cystic ovary and multiple detached pieces of hernandez soft tissue. The fallopian tubes are not identified as right or left. The intact fallopian tube including fimbrial end measures 6 cm in length and 1 cm in diameter. Sections reveal unremarkable cut surfaces. The portion of second fallopian tube measures 5 cm in length and 0.8 cm in diameter. The detached smaller piece of fallopian tube measures 2?cm in length and 0.5 cm in diameter. The detached fimbrial end measures 2 x 2 x 1 cm. The detached pieces of soft tissue measures in aggregate 3 x 2 x 0.5 cm. The soft to cystic ovary identified as left ovary weighs 85 gm and measures 9 x 9 x 3 cm. It is previously, partially opened. The external surface is smooth without any papillations and inked black. The cystic ovary consists of multiloculated cysts. The cyst wall measures 0.1 cm in thickness. No papillations are identified in the inner cyst wall. Circulator sections are submitted in five cassettes as follows: 1 - intact fallopian tube, 2 - second fallopian tube in multiple pieces including fimbrial end, 3 - smaller pieces of detached soft tissue, 4 & 5 - cystic ovary. / SJ:rg 05/17/20 TC:1 CPT: 80388, 19457 x2, 82849
--- NOTE | 2020-05-17 10:15 | FLU_PTH ---
PATIENT: FLAVIO HAWKINS LOC: [facility] [place] U#:[id number] AGE/SX: 39/F ROOM: RE05/17/[address]: Dr. Mirna Swann MD : 1980 BED: DIS: 05/17/2020 SPEC #: [id number] RECD: 05/17/20 13:10 STATUS: RUPAL CITLALLI #: [id number] WALDO: 05/17/20 10:[address]: Mirna Swann DEPT: CYTOLOGY RECD BY: Chauncey Gutiérrez ENTERED: 05/17/20 13:11 SP TYPE: Fluid OTHR DR: No Primary Care Phys Tissues: Pelvis, NOS Procedures: Special Stain Group II Surgery Specimen Level IV Cytospin Fluid HEADER OPERATION: Laparoscopic bilateral salpingectomy, left oophorectomy PRE-OP DIAGNOSIS: Left ovarian cyst TISSUE SUBMITTED: Pelvic washings for cytology DIAGNOSIS CYTOLOGY Pelvic washings for cytology (cytospin and cell block): Negative for malignant cells. See comment. MIKE:rg 05/18/20 COMMENT Please make reference to corresponding surgical specimen ([id number]) bilateral fallopian tubes and left ovary with diagnosis of bilateral fallopian tubes, no pathologic diagnosis and left ovary with diagnosis of seromucinous cystadenoma. CYTOLOGY STUDY Slides are reviewed. CYTOLOGY GROSS Received is 15 ml of cloudy straw-colored fluid labeled with the patient's name and and designated per the requisition as pelvic washings. Submitted for cytology preparation including cell block. / lupe 05/17/20 TC:4 CPT: 25772, 31724
[2020-05-17] MEDS: Lactated Ringers 1,000 ML 100 ML IV ×2 (11:31)
--- NOTE | 2020-05-17 13:09 | SUR.PHASEII ---
SCOPALAMINE PATCH AND ZOFRAN 4MG IV GIVEN DUE TO NAUSEA
--- NOTE | 2020-05-17 15:51 | SUR.PHASEII ---
nausea resolved. voided.
== END 2020-05-17 15:52 | disposition home or self-care (01) ==
LOC: SDC 08:40 → AC 08:40
PROVIDERS: Anesthesiology; Referring Provider Obstetrics & Gynecology; Visit Provider Obstetrics & Gynecology
PROC: (CPT 58661; principal; 2020-05-17 10:00)
DX: D27.1 Benign neoplasm of left ovary (principal); Z11.59 Encounter for screening for other viral diseases
CPT/HCPCS: 00840; 58661; 36415; 81025; 85027; 86850; 86900; 86901; 87635; 88108; 88305; 88307; 88313; 94799; J7120; J2405; U0003

== ENCOUNTER → 2021-04-21 12:12 | Outpatient (CLI) | payer OTHER, SELFPAY ==
[2020-05-30 13:50] VITALS: BMI 37.0
--- NOTE | 2021-04-21 12:12 | BI_ITS ---
MAMMOGRAPHY - BILATERAL SCREENING REASON FOR EXAM: Female, 40 years old. Routine annual screening examination. PERTINENT HISTORY: Grandmother with breast cancer. TECHNIQUE: Digital bilateral breast sabrina (3D mammographic acquisition) in the CC and MLO projections. 2-D mediolateral oblique (MLO) and craniocaudad (CC) views of both breasts were obtained. CAD: Full Field Digital Mammography with Computer Added Detection was performed. COMPARISON: None. Baseline examination. FINDINGS: Breast Composition: The breasts are extremely dense, which lowers the sensitivity of mammography. There are no dominant masses or suspicious calcifications. No other significant abnormalities are identified. There has been no significant change since the prior study. BI/SCRN MAMM (CAD)W/SABRINA BILAT IMPRESSION: Stable bilateral screening mammogram. Yearly follow-up mammogram recommended. (A) ASSESSMENT CATEGORY: BIRADS Category 1: Negative. A letter regarding these results will be sent to the patient by the facility within 30 days. Approximately 10% of breast cancers are not detected by mammography. A normal mammogram should not delay biopsy of a clinically suspicious abnormality. [id number] Electronically Signed: Darren Ludwig MD at 13:04 EDT , Service support ,
== END ==
PROVIDERS: PCP Family Medicine; Referring Provider Obstetrics & Gynecology; Visit Provider Obstetrics & Gynecology
DX: Z12.31 Encounter for screening mammogram for malignant neoplasm of breast (principal)
CPT/HCPCS: 77063; 77067

== ENCOUNTER → 2021-05-19 13:45 | Outpatient (CLI) | payer OTHER, SELFPAY ==
[2021-05-09 09:00] VITALS: BMI 35.6
--- NOTE | 2021-05-19 13:46 | US_ITS ---
STUDY: ULTRASOUND OF THE FEMALE PELVIS - COMPLETE REASON FOR EXAM: Female, 40 years old. LLQ PAIN, distention LMP: 04/28/2021 TECHNIQUE: Transabdominal and Transvaginal TECHNICAL QUALITY: Adequate. COMPARISON: None. FINDINGS: The uterus is anteverted and is in a midline position. The uterus measures 10 x 6.9 x 5.1 cm. Normal uterine cervix. The endometrium measures 17.3 mm in thickness, and is hyperechoic. There is no demonstrated endometrial mass. There is a 1.2 x 1.4 x 0.9cm I.U.D. - The patient does not have an I.U.D. The right ovary is visualized. The right ovary measures 4.4 x 3.0 x 2.3 cm. There is no right ovarian cyst or ovarian mass. There is no visualized right adnexal mass or complex lesion. There is normal arterial and normal venous vascularity. The left ovary was previously removed There is no fluid in the cul-de-sac. The bladder is sonographically normal US/Transvaginal Non- IMPRESSION: Small uterine fibroid No suspicious adnexal mass or free fluid Electronically Signed: Cameron Sanchez MD at 15:14 EDT , Service support ,
--- NOTE | 2021-05-19 13:46 | US_ITS ---
STUDY: ULTRASOUND OF THE FEMALE PELVIS - COMPLETE REASON FOR EXAM: Female, 40 years old. LLQ PAIN, distention LMP: 04/28/2021 TECHNIQUE: Transabdominal and Transvaginal TECHNICAL QUALITY: Adequate. COMPARISON: None. FINDINGS: The uterus is anteverted and is in a midline position. The uterus measures 10 x 6.9 x 5.1 cm. Normal uterine cervix. The endometrium measures 17.3 mm in thickness, and is hyperechoic. There is no demonstrated endometrial mass. There is a 1.2 x 1.4 x 0.9cm I.U.D. - The patient does not have an I.U.D. The right ovary is visualized. The right ovary measures 4.4 x 3.0 x 2.3 cm. There is no right ovarian cyst or ovarian mass. There is no visualized right adnexal mass or complex lesion. There is normal arterial and normal venous vascularity. The left ovary was previously removed There is no fluid in the cul-de-sac. The bladder is sonographically normal US/Pelvic (Non ) IMPRESSION: Small uterine fibroid No suspicious adnexal mass or free fluid Electronically Signed: Cameron Sanchez MD at 15:14 EDT , Service support ,
== END ==
PROVIDERS: PCP Family Medicine; Referring Provider Nurse Practitioner Women's Health; Visit Provider Nurse Practitioner Women's Health
DX: R10.2 Pelvic and perineal pain (principal)
CPT/HCPCS: 76830; 76856

== ENCOUNTER → 2023-02-13 | Outpatient (CLI) | payer OTHER, SELFPAY ==
--- NOTE | 2023-02-13 12:45 | BI_ITS ---
MAMMOGRAPHY - BILATERAL SCREENING REASON FOR EXAM: Female, 42 years old. Routine annual screening examination. PERTINENT HISTORY: Grandmother with breast cancer. TECHNIQUE: Digital bilateral breast sabrina (3D mammographic acquisition) in the CC and MLO projections. 2-D mediolateral oblique (MLO) and craniocaudad (CC) views of both breasts were obtained. CAD: Full Field Digital Mammography with Computer Added Detection was performed. COMPARISON: Comparison is made with prior study dated April 21, 2021. FINDINGS: Breast Composition: The breasts are extremely dense, which lowers the sensitivity of mammography. There are no dominant masses or suspicious calcifications. No other significant abnormalities are identified. There has been no significant change since the prior study. BI/SCRN MAMM (CAD)W/SABRINA BILAT IMPRESSION: Stable bilateral screening mammogram. Yearly follow-up mammogram recommended. (A) ASSESSMENT CATEGORY: BIRADS Category 1: Negative. A letter regarding these results will be sent to the patient by the facility within 30 days. Approximately 10% of breast cancers are not detected by mammography. A normal mammogram should not delay biopsy of a clinically suspicious abnormality. [id number] Electronically Signed: Darren Ludwig MD at 14:08 EDT ,
== END | disposition home or self-care (01) ==
LOC: OPBI 12:43
PROVIDERS: PCP Family Medicine; Referring Provider Obstetrics & Gynecology; Visit Provider Obstetrics & Gynecology
DX: Z12.31 Encounter for screening mammogram for malignant neoplasm of breast (principal)
CPT/HCPCS: 77063; 77067

== ENCOUNTER 2023-05-10 01:46 | Emergency (ER) | payer OTHER, SELFPAY ==
[2023-05-10 01:47] VITALS: BP 150/99; PULSE 88; RESP 18; TEMP 36.1; O2SAT 100; BMI 37.6
--- NOTE | 2023-05-10 02:08 | CT_ITS ---
INDICATION: severe headache EXAMINATION: CT BRAIN WITH AND WITHOUT CONTRAST - CT Head or Brain WO/W Contrast Injection TECHNIQUE: Multiple axial images were obtained of the brain with and without IV contrast. A radiation dose optimization technique was used for this scan. IV Contrast dosage and agent: RADIATION DOSAGE (If Supplied By Facility): CTDIvol = ( 31.70 ) mGy, DLP = ( 1615.56 ) mGycm COMPARISON: FINDINGS: BRAIN PARENCHYMA: No intra- or extra-axial hemorrhage. No evidence of acute infarct. No intracranial mass or mass effect. There is preservation of the engel/white matter interface. Posterior fossa structures are unremarkable. No abnormal contrast enhancement. CSF SPACES: Appropriate for age. No hydrocephalus. Basal cisterns are patent. CALVARIUM, SKULL BASE, PARANASAL SINUSES AND MASTOID AIR CELLS: Clear. No discrete lytic or blastic abnormalities. ORBITS: Both globes, extraocular muscles, optic nerves and retrobulbar fat appear unremarkable. ASPECTS Score for Acute Strokes: 10 CT/CTA Head W/WO Contrast IMPRESSION: Negative CT Brain with and without contrast. Electronically Signed: Roberto Lazaro MD at 3:35 EDT ,
--- NOTE | 2023-05-10 02:09 | EX.ED.VIS.HA ---
HPI History of Present Illness Chief Complaint: Headache Informant: patient and spouse/S.O. Narrative Narrative: Healthy 42-year-old woke up around 1 or 2 hours ago with a severe bifrontal throbbing headache, disequilibrium/spinning, feeling off balance when she is walking, brief tinnitus in the left ear that is now gone and no other ear pain or hearing loss, photophobia, nausea and vomiting. She feels tingly all over her body both arms and legs. States she had a very mild headache when she went to bed but nothing like this and she did not have the other symptoms. No history of headaches. She states she is on a control pill which is relatively new for her, and takes no other prescription medications. [facility] Medical History Acute conjunctivitis, right eye Acute frontal sinusitis, unspecified Acute otitis media, right Acute pharyngitis Contact with and (suspected) exposure to other viral communicable diseases Hay fever Otitis media, left Home Medications multivitamin 1 tab PO DAILY 04/20/20 [History Last Taken 05/10/23] desogestrel 0.15 mg-ethinyl estradiol 0.03 mg tablet (Apri) 1 tab PO QDAY #28 tabs 04/23/23 [Rx Last Taken Unknown] metoclopramide HCl 10 mg tablet 10 mg PO Q6H PRN PRN Headache or nausea #20 tabs 05/10/23 [Rx Last Taken Unknown] Allergy/AdvReac Type Severity Reaction Status Date / Time No Known Allergies Allergy Verified 05/10/23 01:46 Family History Father Parkinsons disease Grandmother Breast cancer Lupus Grandfather Myocardial infarction Sister Crohn's disease Daughter Spina bifida Unknown Breast cancer Surgical History Hx of section S/P bilateral salpingo-oophorectomy (~05/17/20) [place] teeth extracted Social History household members: spouse and children number of children: 4 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 history of recent travel: No sexually active: Yes Smoking Status: Never smoker alcohol intake: current alcohol intake frequency: a few times a month Alcohol type: wine substance use type: does not use caffeine: Yes what type of physical activity do you participate in: walking seatbelt use: always do you feel safe at home: Yes additional social history: - Liu Garces ([facility]-PT) ROS ROS ED Constitutional Constitutional ED: Denies chills or fever(s) Eyes Eyes: Reports photophobia; Denies blurry vision or diplopia ENT ENT ED: Reports as per HPI, disequillibrium, dizziness, tinnitus, vertigo and other Details: Seasonal allergies that are not an acute issue recently ; Denies ear pain, hearing loss, nasal congestion, nasal trauma, neck pain or sore throat Cardiovascular Cardiovascular: Denies chest pain or palpitations Respiratory/Chest Respiratory/Chest: Denies cough or dyspnea Gastrointestinal Gastrointestinal: Reports nausea and vomiting; Denies abdominal pain or diarrhea Genitourinary Genitourinary ED: Denies dysuria or urinary frequency Musculoskeletal Musculoskeletal: Denies back pain or myalgias Integumentary Denies abscess or rash Neurologic Neurologic: Reports headache(s) and paresthesias RUE, RLE, LUE and LLE; Denies weakness Psychiatric Psychiatric: Reports anxiety; Denies suicidal ideation EXAM Physical Exam Const Vital Signs: 05/10/23 01:47 Temperature 97.0 F L Temperature Source Temporal Pulse Rate 88 Respiratory Rate 18 Blood Pressure 150/99 H Blood Pressure Mean 116 Pulse Ox 100 Oxygen Delivery Method Room Air Positive well nourished and well developed Constitutional Narrative: Uncomfortable hyperventilating, increased psychomotor agitation moving all 4 extremities while lying in bed and moaning in discomfort General Appearance ED: well developed HEENT Reports normocephalic, TM's clear and moist mucous membranes atraumatic Tympanic Membrane ED: Yes TM's clear Eyes PERRL, EOMs intact bilaterally and conjunctivae normal Eyes Narrative: photophobia. No pathologic nystagmus. Neck no lymphadenopathy, supple and no meningeal signs General: Negative for tenderness Resp normal respiratory effort and clear to auscultation bilaterally GI non-tender and non-distended Palpation: soft Extremity normal to inspection and full ROM Neuro oriented x3 and CN's II-XII intact bilaterally Neuro Narrative: Normal speech and comprehension. Normal tommsg-dy-zbbq and ydph-po-mmkh bilaterally. Negative Hungry Horse-Hallpike bilaterally. Sensorium / Orientation: awake and alert Speech: speech normal Gait (Neuro): normal gait Motor Exam: strength 5/5 throughout Psych mental status grossly normal Mood & Affect: anxious Skin Lesions: no lesions Rashes: no rashes MDM MDM MDM Narrative Medical decision making narrative: Patient looking very uncomfortable, mildly hypertensive, woken up by severe headache with vertiginous symptoms, and no exam evidence of central etiology. Since she does not usually have headaches like this and it was suddenly severe that woke her up, I sent her for CT angiography of the head which includes a plain CT. It is negative for bleed and negative for acute aneurysm, I reviewed the images and report which I agree with. In the meantime basic labs were obtained which are normal, and she was treated for a possible migraine empirically with IV fluids, Reglan, Benadryl. On reevaluation she is feeling much better. Given the negative work-up, this is likely a migraine headache related to her new control pills/exogenous female hormones. Advised to follow-up with her doctor, I will give her prescription for Reglan to use as needed for nausea. Lab Data Attestation: I reviewed the patient's lab results. Labs: Laboratory Results - last 24 hr 05/10/23 02:12 WBC 9.3 RBC 4.40 Hgb 13.0 Hct 37.4 MCV 85.0 MCH 29.5 MCHC 34.8 RDW Std Deviation 37.8 RDW Coeff of Gemma 12.4 Plt Count 285 MPV 8.8 Immature Gran % (Auto) 0.300 Neut % (Auto) 63.1 Lymph % (Auto) 28.5 [place] % (Auto) 6.5 Eos % (Auto) 1.2 Baso % (Auto) 0.4 Absolute Neuts (auto) 5.9 Absolute Lymphs (auto) 2.65 Nucleated RBC % 0 Sodium 137 Potassium 3.6 Chloride 107 Carbon Dioxide 23.0 Anion Gap 7 BUN 13 Creatinine 1.01 Estim Creat Clear Calc 70.56 Est GFR (MDRD) Af Amer 77 Est GFR (MDRD) Non-Af 64 BUN/Creatinine Ratio 12.9 Glucose 134 H Calcium 8.9 Radiography Diagnostic Testing: Clinical Impression(s) from Imaging Studies Head CTA 05/10/23 02:08 IMPRESSION: Negative CT Brain with and without contrast. Electronically Signed: Roberto Lazaro MD at 3:35 EDT , Discharge Plan Triage Chief Complaint: Headache ED Provider: Hector Juárez Dx/Rx/DC Orders Clinical Impression: Headache, migraine Instructions: Migraines and Cluster Headaches Prescriptions: New metoclopramide HCl [metoclopramide HCl] 10 mg tablet 10 mg PO Q6H PRN PRN (Reason: Headache or nausea) Qty: 20 0RF No Action multivitamin Tablet 1 tab PO DAILY desogestrel-ethinyl estradiol [Apri] 0.15-0.03 mg tablet 1 tab PO QDAY Qty: 28 12RF Primary Care Provider: Dorinda Barney Referrals: Dorinda Barney DO [Primary Care Provider] - 3-5 Days if not improving Disposition Disposition: Home, Self Care
[2023-05-10] MEDS: DiphenhydrAMINE 50 MG/ML Syringe 25 MG IV (02:16)
[2023-05-10 02:17] LABS: Absolute Lymphocyte Count 2.65 X10^3/uL (0.83-4.51); Absolute Neutrophil Count 5.9 X10^3/uL (2.0-7.7); Basophil# 0.04 X10^3/uL; Basophil% 0.4 % (0-1); Eosinophil# 0.11 X10^3/uL; Eosinophils% 1.2 % (0-5); Hematocrit 37.4 % (37-47); Lymphocyte # 2.65 X10^3/ul (0.83-4.51); Lymphocyte % 28.5 % (19-41); Mean Corp Hgb Conc 34.8 g/dL (32-36); Mean Corpuscular Hgb 29.5 pg (27.0-32.0); Mean Platelet Vol. 8.8 fl (6.2-12.0); Monocyte% 6.5 % (0-10); NRBC Flagged by Analyzer 0 % (0-5); Neutrophil # 5.86 X10^3/uL (2.7-7.7); Neutrophil % 63.1 % (47-70); Platelet Count 285 K/mm3 (150-450); RBC Distribution Width CV 12.4 % (11.6-14.6); RBC Distribution Width SD 37.8 fl (35.1-43.9); White Blood Count 9.3 K/mm3 (4.4-11.0)
[2023-05-10] MEDS: 0.9% Normal Saline 1,000 ML 999 ML IV (02:17)
[2023-05-10] MEDS: Metoclopramide 10 MG/2 ML Vial IV (02:17)
[2023-05-10 02:30] LABS: Anion Gap 7 (5-15); BUN 13 mg/dL (7-18); BUN/Creat Ratio 12.9 RATIO (10-20); Calcium,Total 8.9 mg/dL (8.5-10.1); Chloride 107 mmol/L (98-107); Creatinine, Serum 1.01 mg/dL (0.55-1.02); EST Glomerular Filtration Rate 64 mL/min (>60); Est Glom Filt Rate - Afr Amer 77 mL/min (>60); Estimated Creatinine Clearance 70.56 ml/min; Glucose 134 mg/dL (74-106); Potassium 3.6 mmol/L (3.5-5.1); Sodium Level 137 mmol/L (136-145)
[2023-05-10] MEDS: Ketorolac 30 MG/ML Syringe IV (03:46)
[2023-05-10 03:53] VITALS: BP 138/79; PULSE 75; RESP 17; O2SAT 100
== END 2023-05-10 03:54 | disposition home or self-care (01) ==
PROVIDERS: Emergency Provider Emergency Medicine; PCP Family Medicine; Visit Provider Emergency Medicine
DX: G43.909 Migraine, unspecified, not intractable, without status migrainosus (principal); Z79.3 Long term (current) use of hormonal contraceptives
CPT/HCPCS: 70496; 80048; 85025; 96361; 96374; 96375; 99283; J7030; Q9967; A4216

== ENCOUNTER → 2023-05-25 | Outpatient (CLI) | payer OTHER, SELFPAY ==
[2023-05-25 09:08] LABS: Absolute Lymphocyte Count 1.96 X10^3/uL (0.83-4.51); Absolute Neutrophil Count 3.7 X10^3/uL (2.0-7.7); Basophil# 0.04 X10^3/uL; Basophil% 0.6 % (0-1); Eosinophil# 0.14 X10^3/uL; Eosinophils% 2.2 % (0-5); Hematocrit 41.3 % (37-47); Hemoglobin 13.6 g/dL (12.0-15.0); Lymphocyte # 1.96 X10^3/ul (0.83-4.51); Lymphocyte % 31.5 % (19-41); Mean Corp Hgb Conc 32.9 g/dL (32-36); Mean Corpuscular Hgb 28.6 pg (27.0-32.0); Mean Corpuscular Volume 86.9 fL (81-99); Mean Platelet Vol. 8.9 fl (6.2-12.0); Monocyte# 0.42 X10^3/uL; Monocyte% 6.7 % (0-10); NRBC Flagged by Analyzer 0 % (0-5); Neutrophil # 3.65 X10^3/uL (2.7-7.7); Neutrophil % 58.7 % (47-70); Platelet Count 276 K/mm3 (150-450); RBC Distribution Width CV 11.9 % (11.6-14.6); RBC Distribution Width SD 38.3 fl (35.1-43.9); Red Blood Count 4.75 M/mm3 (4.2-5.4); White Blood Count 6.2 K/mm3 (4.4-11.0)
[2023-05-25 10:12] LABS: ALB/GLOB Ratio 1.2 RATIO (0.9-2.4); AST(SGOT) 17 U/L (15-37); Alanine Aminotransfer ALT/SGPT 20 U/L (13-56); Alkaline Phosphatase 84 U/L (45-117); Anion Gap 3 (5-15); BUN 15 mg/dL (7-18); BUN/Creat Ratio 17.4 RATIO (10-20); Calcium,Total 8.8 mg/dL (8.5-10.1); Chloride 109 mmol/L (98-107); Cholesterol 161 mg/dL (200); Creatinine, Serum 0.86 mg/dL (0.55-1.02); EST Glomerular Filtration Rate 77 mL/min (>60); Est Glom Filt Rate - Afr Amer 93 mL/min (>60); Free T3 2.6 pg/mL (2.18-3.98); Globulin 3.4 g/dL (2.2-4.2); Glucose 92 mg/dL (74-106); High Density Lipoprotein 47 mg/dL; Potassium 4.1 mmol/L (3.5-5.1); Protein, Total 7.4 g/dL (6.4-8.2); Sodium Level 139 mmol/L (136-145); Thyroid Stim Hormone (TSH) 3.12 uIU/mL (0.358-3.74); Triglycerides 182 mg/dL; Very Low Density Lipoprotein 36 mg/dL (5-40)
[2023-05-27 17:07] LABS: Thyroid Peroxidase AB 29 IU/mL (0-34)
== END | disposition home or self-care (01) ==
LOC: LAB 08:25
PROVIDERS: PCP Family Medicine; Referring Provider Family Medicine; Visit Provider Family Medicine
DX: Z00.00 Encounter for general adult medical examination without abnormal findings (principal); R53.83 Other fatigue; H05.20 Unspecified exophthalmos
CPT/HCPCS: 36415; 80053; 80061; 84439; 84443; 84481; 85025; 86376; 86800

== ENCOUNTER 2024-02-24 07:45 | Day surgery (SDC) | payer OTHER, SELFPAY ==
[2024-02-24] VITALS (14 sets, daily range): BP systolic 84–128; BP diastolic 57–95; PULSE 66–90; RESP 16–25; TEMP 35.9–36.7; O2SAT 95–100; BMI 38.7
--- NOTE | 2024-02-24 07:50 | EKG12_ITS ---
Test Reason : Blood Pressure : / mmHG Vent. Rate : 078 BPM Atrial Rate : 077 BPM P-R Int : 130 ms QRS Dur : 082 ms QT Int : 434 ms P-R-T Axes : 070 065 045 degrees QTc Int : 494 ms Normal sinus rhythm Nonspecific ST abnormality Abnormal ECG Confirmed by Sha Frazier ([id number]), editor newspaper BELKIS MENDIOLA ([id number]) on 02/25/2024 8:06:12 AM Referred By: Confirmed By:Sha Frazier
--- NOTE | 2024-02-24 07:52 | CT_ITS ---
EXAM: CT ABDOMEN AND PELVIS WITH INTRAVENOUS CONTRAST CLINICAL INDICATION: lower abd/ pelvic pain TECHNIQUE: Helically acquired images were obtained of the abdomen and pelvis with intravenous contrast. This CT exam was performed using one or more of the following dose reduction techniques: automated exposure control, adjustment of the mA and/or kV according to patient size, and/or use of iterative reconstruction technique. CONTRAST: IV 100mL Isovue-300 COMPARISON: No relevant prior studies available. FINDINGS: LOWER THORAX: Debris noted within mildly distended esophagus which may be related to gastroesophageal reflux and/or esophageal dysmotility. No hiatal hernia. ABDOMEN: LIVER: Normal. Homogeneous. No focal mass. GALLBLADDER AND BILE DUCTS: Normal-appearing gallbladder. PANCREAS: Normal. No focal cystic or solid mass. SPLEEN: Normal. Normal size without focal cystic or solid mass. ADRENALS: Normal. No nodules. KIDNEYS AND URETERS: Normal. Normal renal size and position. No hydronephrosis. STOMACH AND BOWEL: Normal. No bowel distention. No focal inflammatory change. PELVIS: APPENDIX: Appendix is visualized and normal in appearance. BLADDER: Normal. REPRODUCTIVE: 5.1 and 4.7 cm conjoined low-density mass within the pelvis suggestive of a cystic ovarian lesion. Further ultrasound follow-up is recommended. Uterus measures 10.2 x 5.0 x 4.8 cm without focal mass. ABDOMEN and PELVIS: INTRAPERITONEAL SPACE: Physiological amount of free fluid noted within the pelvis. No free air. BONES/JOINTS: No suspicious lytic or blastic abnormality. SOFT TISSUES: Normal. No discrete abdominal or pelvic wall hernia. VASCULATURE: Normal. Abdominal aorta is non-dilated. LYMPH NODES: Normal. No enlarged lymph nodes. CT/Abdomen/Pelvis W IV Cont ONLY IMPRESSION: 1. Bilobed cystic pelvic mass likely ovarian in origin. Recommend follow-up pelvic ultrasound. 2. Mild esophageal distention suggestive of GE reflux/esophageal dysmotility. Electronically Signed: Benjamin Alva MD at 8:31 EDT ,
--- NOTE | 2024-02-24 07:53 | ED.VIS.GI ---
HPI HPI - GI History of Present Illness Chief Complaint: Abd Pain Detail of Chief Complaint: Lower abdominal/pelvic pain Informant: patient Abdominal Pain/Flank Pain Onset: Today Context: Gradual Onset Timing: Continuous Quality: Aching and Cramping Location: LLQ and - (Bilateral lower quadrants, suprapubic improvement with left lower quadrant.) Current Severity: Moderate Maximum Severity: Moderate Worsened by: Nothing Relieved by: Nothing Nausea/Vomiting/Emesis GI Symptom: Positive for Nausea; Negative for Vomiting Onset: Today Severity: Mild Diarrhea/Melena/Hematochezia GI Symptom: Negative for Diarrhea, Melena or Hematochezia Associated Symptoms Associated Symptoms: Negative for Dysuria, Frequency, Hematuria or Urgency LMP: Now. Narrative Narrative: 43-year-old female no seen past medical history. 2 prior C-sections. Also removal of a ovarian cyst. States that she has had lower abdominal cramping and aching pain started last night but is been constant this morning. Primarily suprapubic and left lower quadrant. No dysuria. No fever. Nausea without vomiting. No diarrhea or constipation. She is currently on a menstrual period and have vaginal bleeding. Last 1 was about 6 weeks ago. Last bowel movement was today. Prior similar symptoms: No Recent Illness/Hospitalization: No PFSH PFSH Medical History Acute pharyngitis Acute otitis media, right Acute conjunctivitis, right eye Contact with and (suspected) exposure to other viral communicable diseases Acute frontal sinusitis, unspecified Otitis media, left Hay fever Home Medications ?Medication ?Instructions ?Recorded ?Last Taken ?Type multivitamin 1 tab PO DAILY 04/20/20 05/10/23 History metoclopramide HCl 10 mg tablet 10 mg PO Q6H PRN PRN Headache or 05/10/23 Unknown Rx nausea #20 tabs Allergy/AdvReac Type Severity Reaction Status Date / Time No Known Allergies Allergy Verified 02/24/24 07:46 Family History Father Parkinsons disease Grandmother Breast cancer Lupus Grandfather Myocardial infarction Sister Crohn's disease Daughter Spina bifida Unknown Breast cancer Surgical History S/P bilateral salpingo-oophorectomy (~05/17/20) [place] teeth extracted Hx of section Social History household members: spouse and children number of children: 4 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 Lower abdominal and pelvic pain. Review of Systems ROS Unobtainable: Denies due to encephalopathy Constitutional Constitutional ED: Denies chills or fever(s) ENT ENT ED: Denies ear pain Cardiovascular Cardiovascular: Denies chest pain Respiratory/Chest Respiratory/Chest: Denies cough or dyspnea Gastrointestinal Gastrointestinal: Reports abdominal pain and nausea; Denies constipation, diarrhea, melena or vomiting Genitourinary Genitourinary ED: Denies dysuria or hematuria Musculoskeletal Musculoskeletal: Denies arthralgias, back pain or myalgias Integumentary Denies abscess or Abrasions Neurologic Neurologic: Denies headache(s) or paresthesias Psychiatric Psychiatric: Denies anxiety, depression or suicidal thoughts Endocrine Endocrinology: Denies polydipsia Hematologic/Lymphatic Hematologic/Lymphatic: Denies easy bleeding Allergic/Immunologic Allergic/Immunologic ED: Denies mouth swelling EXAM Physical Exam Narrative Exam Narrative: 43 female vital signs stable afebrile. Complaining of lower abdominal / pelvic pain. H EENT exam unremarkable. Lungs clear. Heart regular rhythm no murmur. Abdomen is soft, nondistended, normal bowel sounds without peritoneal signs. She has mild suprapubic tenderness. No hernia or mass. No McBurney's or right upper quadrant tenderness. No signs of obstruction. Moving all 4 extremities. Nontender no edema. Back nontender. She is awake and alert. Const Vital Signs: 02/24/24 07:46 02/24/24 08:46 02/24/24 08:46 Temperature 96.9 F L Temperature Source Temporal Pulse Rate 74 78 78 Respiratory Rate 25 H 20 H 22 H Blood Pressure 125/86 H 116/95 H 116/95 H Blood Pressure Mean 99 102 102 Pulse Ox 97 95 Oxygen Delivery Method Room Air Room Air Room Air 02/24/24 10:00 02/24/24 10:32 02/24/24 11:00 Temperature Temperature Source Pulse Rate 87 89 66 Respiratory Rate 19 H 20 H Blood Pressure 84/57 L 112/67 124/70 H Blood Pressure Mean 66 82 88 Pulse Ox 98 Oxygen Delivery Method Room Air Positive well nourished and well developed; Negative for cachectic, contractures or unkempt General Appearance ED: well developed and NAD; Negative for unkempt, cachectic, contractures or pallor Nutritional Appearance: Negative for cachectic HEENT Reports moist mucous membranes; Denies dry mucous membranes normocephalic and atraumatic; Negative for trauma or tenderness Mouth ED: No dry mucous membranes Mouth: No dry mucous membranes Eyes PERRL and EOMs intact bilaterally General Eye ED: Negative for pale conjunctiva or scleral icterus Neck no lymphadenopathy, supple and no JVD General: Negative for tenderness Carotids: Negative for other Lymph Lymphatic: Negative for other Resp normal respiratory effort and clear to auscultation bilaterally Effort and Inspection: Negative for respiratory distress or retractions Auscultation: Negative for rales, rhonchi, wheezes or diminished lung sounds Cardio regular rate, regular rhythm, S1 normal heart sound, S2 normal heart sound and no murmurs Rate: Negative for bradycardia or tachycardic Rhythm: Negative for abnormal rhythm GI non-distended and no masses; Negative for non-tender GI Narrative: Suprapubic tenderness. Inspection: Negative for abdominal distention Auscultation: normoactive bowel sounds Palpation: soft and tender; Negative for guarding, hernia, mass, pulsatile mass or rebound tenderness present Back/Spine no CVA tenderness General Back: Negative for CVA tenderness Cervical Spine: Negative for cervical spine tenderness Thoracic Spine / Upper Back: Negative for thoracic spinal tenderness Lumbar Spine / Lower Back: Negative for lumbar spinal tenderness Coccyx: Negative for other Extremity General Extremety ED: Negative for edema or other findings General Extremity: Negative for edema or other findings Neuro CN's II-XII intact bilaterally and moves all extremities Sensorium / Orientation: alert, oriented to person, oriented to place and oriented to time; Negative for orientation impaired or confused Motor Exam: strength 5/5 throughout Psych mental status grossly normal and thought process normal Appearance: Negative for unkempt Attitude: No agitated Mood & Affect: Negative for depressed, anxious or tearful Skin no wounds General Skin Exam: Negative for jaundice or pallor Lesions: no lesions and No lesion noted Rashes: no rashes and No rashes noted Trauma: Negative for abrasion or other Nails: Negative for discolored MDM MDM MDM Narrative Medical decision making narrative: 43-year-old female with lower abdominal and pelvic pain. Differential would include UTI, menstrual cramps, ectopic if she is ., Diverticulitis versus other. She will be treated with morphine for pain and Zofran for nausea. CAT scan labs are pending. Clinically this does not appear to be appendicitis or gallbladder disease. There is no obvious hernia. No signs of bowel obstruction at this time. Repeat exam at 8:50 AM patient still having pain. We went over her initial test results. I have ordered transvaginal pelvic ultrasound for suspected ovarian cyst. She will be also given Toradol for pain. Patient treated with 5 mg of Dilaudid for pain at 10 AM. Pelvic ultrasound shows two 5 cm cysts that they suspect are coming from the right ovary. Left ovary has been surgically removed. Repeat exam at 10:30 AM patient has received morphine x 2 doses, Toradol and IV Dilaudid for pain. Still having pain. I did speak to Dr. Mirna Swann her IMPROVEMENT RN. He reviewed her ultrasound. Again no signs of torsion at this time. She will see her in the office Saturday to discuss with the patient therapeutic options including possible surgery. Patient had continued pain was given additional pain meds Dr. Eric came down evaluated her to take her to the OR for laparoscopic evaluation possible cyst removal and/or ovary removal depending on what she determines while in the operating room. History & Record Review Discussion w/independent historian: Patient Additional record(s) reviewed:: Prior inpatient record, Prior outpatient record, Prior ED visit and Prior labs Lab Data Attestation: I reviewed the patient's lab results. Lab results narrative: CBC normal. White count 7. H&H 13 and 38. Platelets 285. Electrolytes unremarkable gap 5. Normal BUN and creatinine. Glucose 122. Serum test negative. Labs: Laboratory Results - last 24 hr 02/24/24 02/24/24 07:45 10:40 WBC 7.3 RBC 4.54 Hgb 13.2 Hct 38.9 MCV 85.7 MCH 29.1 MCHC 33.9 RDW Std Deviation 39.5 RDW Coeff of Gemma 12.8 Plt Count 285 MPV 9.4 Immature Gran % (Auto) 0.500 Neut % (Auto) 46.2 L Lymph % (Auto) 41.5 H [place] % (Auto) 8.6 Eos % (Auto) 2.5 Baso % (Auto) 0.7 Absolute Neuts (auto) 3.4 Absolute Lymphs (auto) 3.03 Nucleated RBC % 0 Sodium 138 Potassium 3.7 Chloride 110 H Carbon Dioxide 23.0 Anion Gap 5 BUN 14 Creatinine 0.96 Estim Creat Clear Calc 97.62 Est GFR (MDRD) Af Amer 82 Est GFR (MDRD) Non-Af 68 BUN/Creatinine Ratio 14.6 Glucose 122 H Calcium 9.0 Serum , Qual NEGATIVE Urine Color Red Urine Clarity Cloudy Urine pH 7.0 Ur Specific [place] 1.005 Urine Protein 100 H Urine Glucose (UA) Normal Urine Ketones 5 H Urine Occult Blood 250 H Urine Nitrite Positive H Urine Bilirubin Negative Urine Urobilinogen 1 H Ur Leukocyte Esterase 100 H Urine RBC > 100 SEEN Urine WBC 0 SEEN Ur Squamous Epith Cells 0-5 SEEN Urine Bacteria 0 SEEN Urine Mucus 0 SEEN Radiography Diagnostic Testing: Clinical Impression(s) from Imaging Studies Abdomen/Pelvis CT 02/24/24 07:52 IMPRESSION: 1. Bilobed cystic pelvic mass likely ovarian in origin. Recommend follow-up pelvic ultrasound. 2. Mild esophageal distention suggestive of GE reflux/esophageal dysmotility. Electronically Signed: Benjamin Alva MD at 8:31 EDT , Transvaginal US 02/24/24 08:45 IMPRESSION: 1. Two 5 cm conjoined cystic lesions likely ovarian in origin. Follow-up ultrasound in 4-6 months recommended. 2. No evidence of ovarian torsion. 3. Thickened endocervical canal which may represent the presence of blood products or polyp. Gynecological follow-up recommended. Electronically Signed: Benjamin Alva MD at 9:44 EDT , Rhythm Strip Rhythm Strip: Sinus Rhythm Rate: 78 Ectopy: None EKG Initial EKG: Attestation: I personally reviewed and interpreted this EKG as follows: Interpretation: Sinus Rhythm and No Acute Injury Pattern Comments: Normal sinus rhythm rate of 78 no acute signs of UT or ischemia Discharge Plan Triage Chief Complaint: Abd Pain ED Provider: Mark Flores Dx/Rx/DC Orders Clinical Impression: Pelvic pain, Ovarian cyst Prescriptions: No Action multivitamin Tablet 1 tab PO DAILY metoclopramide HCl [metoclopramide HCl] 10 mg tablet 10 mg PO Q6H PRN PRN (Reason: Headache or nausea) Qty: 20 0RF Primary Care Provider: Dorinda Barney Referrals: Dorinda Barney DO [Primary Care Provider] - Print Language: [place] Disposition Disposition: Acute Care Hospital [facility]
[2024-02-24] MEDS: morphine 8 MG/ML Syringe 6 MG IV ×2 (07:57→08:21)
[2024-02-24] MEDS: Ondansetron 4 MG/2 ML Vial IV ×2 (07:57→11:18)
[2024-02-24 08:08] LABS: Absolute Lymphocyte Count 3.03 X10^3/uL (0.83-4.51); Absolute Neutrophil Count 3.4 X10^3/uL (2.0-7.7); Basophil# 0.05 X10^3/uL; Basophil% 0.7 % (0-1); Eosinophil# 0.18 X10^3/uL; Eosinophils% 2.5 % (0-5); Hematocrit 38.9 % (37-47); Hemoglobin 13.2 g/dL (12.0-15.0); Lymphocyte # 3.03 X10^3/ul (0.83-4.51); Lymphocyte % 41.5 % (19-41); Mean Corp Hgb Conc 33.9 g/dL (32-36); Mean Corpuscular Hgb 29.1 pg (27.0-32.0); Mean Corpuscular Volume 85.7 fL (81-99); Mean Platelet Vol. 9.4 fl (6.2-12.0); Monocyte# 0.63 X10^3/uL; Monocyte% 8.6 % (0-10); NRBC Flagged by Analyzer 0 % (0-5); Neutrophil # 3.38 X10^3/uL (2.7-7.7); Neutrophil % 46.2 % (47-70); Platelet Count 285 K/mm3 (150-450); RBC Distribution Width CV 12.8 % (11.6-14.6); RBC Distribution Width SD 39.5 fl (35.1-43.9); Red Blood Count 4.54 M/mm3 (4.2-5.4); White Blood Count 7.3 K/mm3 (4.4-11.0)
[2024-02-24 08:14] LABS: Internal QC Validated? YES +Cl - CLEAR BKGD; Pregnancy, Serum, hCG Quali. NEGATIVE Negative
[2024-02-24 08:15] LABS: Record Kit Lot#, Serum Preg. HCG0000718089
[2024-02-24 08:19] LABS: Anion Gap 5 (5-15); BUN 14 mg/dL (7-18); BUN/Creat Ratio 14.6 RATIO (10-20); Chloride 110 mmol/L (98-107); Creatinine, Serum 0.96 mg/dL (0.55-1.02); EST Glomerular Filtration Rate 68 mL/min (>60); Est Glom Filt Rate - Afr Amer 82 mL/min (>60); Estimated Creatinine Clearance 97.62 ml/min; Glucose 122 mg/dL (74-106); Potassium 3.7 mmol/L (3.5-5.1); Sodium Level 138 mmol/L (136-145)
--- NOTE | 2024-02-24 08:45 | US_ITS ---
EXAM: US PELVIS TRANSVAGINAL CLINICAL INDICATION: ov cyst need arterial flow to ovaries TECHNIQUE: Endovaginal pelvic ultrasound was performed with grayscale and color Doppler imaging. Endovaginal imaging was used for better evaluation of the endometrium and adnexa. COMPARISON: No relevant prior studies available. FINDINGS: UTERUS/CERVIX: Uterus measures 10.8 x 6.3 x 4.1 cm. Heterogeneous echotexture of the uterus suggests small fibroids. The endometrial cavity is not well demonstrated. The thickened endocervical canal may represent presence of blood or polyp. Small nabothian cysts are present. RIGHT OVARY: See below. LEFT OVARY: Left ovary has been surgically removed by clinical history. FREE FLUID: Physiological amount of free fluid noted within the pelvis. BLADDER: There are 2 5 cm contiguous cystic lesions identified superior to the urinary bladder which are likely ovarian in origin. Blood flow identified along the periphery of the lesions. US/Transvaginal Non- IMPRESSION: 1. Two 5 cm conjoined cystic lesions likely ovarian in origin. Follow-up ultrasound in 4-6 months recommended. 2. No evidence of ovarian torsion. 3. Thickened endocervical canal which may represent the presence of blood products or polyp. Gynecological follow-up recommended. Electronically Signed: Benjamin Alva MD at 9:44 EDT ,
[2024-02-24] MEDS: Ketorolac 30 MG/ML Syringe IV (08:50)
[2024-02-24] MEDS: HYDROmorphone 0.5 MG/0.5 ML SYRINGE IV (09:58)
[2024-02-24 10:44] LABS: Bacteria 0 SEEN /hpf (None Seen); Mucous, Urine 0 SEEN /hpf (<or=2+); White Blood Cells 0 SEEN /hpf (0-5)
[2024-02-24 10:50] LABS: Color, Urine Red (Yellow); Glucose, Dipstick Normal (Normal); Ketone-Dipstick 5 mg/dl (Negative); Leukocyte Esterase-Dipstick 100 /ul (Negative); Nitrite-Dipstick Positive (Negative); Occult Blood-Urine 250 /ul (Negative); Protein-Dipstick 100 mg/dl (Negative); Specific Gravity, Urine 1.005 (1.002-1.030); Urine Bilirubin Dipstick Negative (Negative); Urine Clarity Cloudy (Clear); Urine Urobilinogen 1 mg/dl (Normal)
[2024-02-24 11:07] LABS: Red Blood Cells-Urine > 100 SEEN /hpf (0-5); Squamous Epithelial Cells - UA 0-5 SEEN /hpf (5-10)
[2024-02-24] MEDS: Lactated Ringers 1,000 ML 15 ML IV (12:55)
--- NOTE | 2024-02-24 13:20 | HP.PCM_ITS ---
HPI - General HPI Narrative FLAVIO HAWKINS, is a 43 F who presents with acute abdominal pain, diaphoresis, uncontrolle dwith iv medication. she has a ten cm ovarian cyst that shows bloodflow but she is very uncomfortable- recommend rpoceeding with immediate surgery. [facility] Medical History Acute pharyngitis Acute otitis media, right Acute conjunctivitis, right eye Contact with and (suspected) exposure to other viral communicable diseases Acute frontal sinusitis, unspecified Otitis media, left Hay fever Home Medications ?Medication ?Instructions ?Recorded ?Last Taken ?Type multivitamin 1 tab PO DAILY 04/20/20 05/10/23 History metoclopramide HCl 10 mg tablet 10 mg PO Q6H PRN PRN Headache or 05/10/23 Unknown Rx nausea #20 tabs Allergy/AdvReac Type Severity Reaction Status Date / Time No Known Allergies Allergy Verified 02/24/24 07:46 Family History Father Parkinsons disease Grandmother Breast cancer Lupus Grandfather Myocardial infarction Sister Crohn's disease Daughter Spina bifida Unknown Breast cancer Surgical History S/P bilateral salpingo-oophorectomy (~05/17/20) [place] teeth extracted Hx of section Social History household members: spouse and children number of children: 4 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 history of recent travel: No sexually active: Yes Smoking Status: Never smoker alcohol intake: current alcohol intake frequency: a few times a month Alcohol type: wine substance use type: does not use caffeine: Yes what type of physical activity do you participate in: walking seatbelt use: always do you feel safe at home: Yes additional social history: - Liu Hawkins ([facility]-PT) ROS Constitutional Constitutional: Reports systems reviewed and no addt'l complaints, except as documented; Denies as per HPI, change in weight, fever(s) or other Eyes Eyes: Reports systems reviewed and no addt'l complaints, except as documented; Denies as per HPI, change in vision or other ENT HEENT: Reports systems reviewed and no addt'l complaints, except as documented Respiratory/Chest Respiratory/Chest: Reports systems reviewed and no addt'l complaints, except as documented Gastrointestinal Gastrointestinal: Reports systems reviewed and no addt'l complaints, except as documented and as per HPI Genitourinary Genitourinary: Reports as per HPI Musculoskeletal Musculoskeletal: Reports systems reviewed and no addt'l complaints, except as documented Neurologic Neurologic: Reports systems reviewed and no addt'l complaints, except as documented Psychiatric Psychiatric: Reports systems reviewed and no addt'l complaints, except as documented Endocrine Endocrinology: Reports systems reviewed and no addt'l complaints, except as documented Hematologic/Lymphatic Hematologic/Lymphatic: Reports systems reviewed and no addt'l complaints, except as documented Vital Signs Vital Signs Vital Signs: 02/24/24 07:46 02/24/24 08:46 02/24/24 08:46 Temperature 96.9 F L Temperature Source Temporal Pulse Rate 74 78 78 Respiratory Rate 25 H 20 H 22 H Blood Pressure 125/86 H 116/95 H 116/95 H Blood Pressure Mean 99 102 102 Blood Pressure Source Blood Pressure Position Blood Pressure Location Pulse Ox 97 95 Oxygen Delivery Method Room Air Room Air Room Air 02/24/24 10:00 02/24/24 10:32 02/24/24 11:00 Temperature Temperature Source Pulse Rate 87 89 66 Respiratory Rate 19 H 20 H Blood Pressure 84/57 L 112/67 124/70 H Blood Pressure Mean 66 82 88 Blood Pressure Source Blood Pressure Position Blood Pressure Location Pulse Ox 98 Oxygen Delivery Method Room Air 02/24/24 11:52 02/24/24 12:34 Temperature 96.7 F L Temperature Source Pulse Rate 87 85 Respiratory Rate 20 H 18 Blood Pressure 124/70 H 125/71 H Blood Pressure Mean 88 89 Blood Pressure Source Monitor Blood Pressure Position Semi-Fowlers Blood Pressure Location Left Arm Pulse Ox 97 95 Oxygen Delivery Method Room Air Weight Weight: 247 lb 5.738 oz Body Mass Index (BMI) 38.7 Physical Exam Const alert and oriented x3 HEENT normocephalic Head and Scalp: atraumatic Eyes EOMs intact bilaterally and conjunctivae normal Neck full ROM Lymph Lymphatic: no lymphadenopathy noted Resp normal respiratory effort, no retractions, no use of accessory muscles and clear to auscultation bilaterally Cardio regular rhythm GI soft to palpation and no masses Inspection: Negative for abdominal distention Back/Spine no CVA tenderness Extremity normal to inspection Skin no rashes or lesions noted Neuro moves all extremities Psych mental status grossly normal Results Lab / Micro Data 02/24/24 07:45 02/24/24 07:45 Labs: Laboratory Results - last 24 hr 02/24/24 07:45: WBC 7.3, RBC 4.54, Hgb 13.2, Hct 38.9, MCV 85.7, MCH 29.1, MCHC 33.9, RDW Std Deviation 39.5, RDW Coeff of Gemma 12.8, Plt Count 285, MPV 9.4, Immature Gran % (Auto) 0.500, Neut % (Auto) 46.2 L, Lymph % (Auto) 41.5 H, [place] % (Auto) 8.6, Eos % (Auto) 2.5, Baso % (Auto) 0.7, Absolute Neuts (auto) 3.4, Absolute Lymphs (auto) 3.03, Nucleated RBC % 0, Sodium 138, Potassium 3.7, C hloride 110 H, Carbon Dioxide 23.0, Anion Gap 5, BUN 14, Creatinine 0.96, Estim Creat Clear Calc 97.62, Est GFR (MDRD) Af Amer 82, Est GFR (MDRD) Non-Af 68, BUN/Creatinine Ratio 14.6, Glucose 122 H, Calcium 9.0, Serum , Qual NEGATIVE 02/24/24 10:40: Urine Color Red, Urine Clarity Cloudy, Urine pH 7.0, Ur Specific [place] 1.005, Urine Protein 100 H, Urine Glucose (UA) Normal, Urine Ketones 5 H , Urine Occult Blood 250 H, Urine Nitrite Positive H, Urine Bilirubin Negative, Urine Urobilinogen 1 H, Ur Leukocyte Esterase 100 H, Urine RBC > 100 SEEN, Urine WBC 0 SEEN, Ur Squamous Epith Cells 0-5 SEEN, Urine Bacteria 0 SEEN, Urine Mucus 0 SEEN Rhythm Strip Rhythm Strip: Sinus Rhythm Rate: 78 Ectopy: None Imaging Radiology Impression Abdomen/Pelvis CT 02/24/24 07:52 IMPRESSION: 1. Bilobed cystic pelvic mass likely ovarian in origin. Recommend follow-up pelvic ultrasound. 2. Mild esophageal distention suggestive of GE reflux/esophageal dysmotility. Electronically Signed: Benjamni Alva MD at 8:31 EDT , Transvaginal US 02/24/24 08:45 IMPRESSION: 1. Two 5 cm conjoined cystic lesions likely ovarian in origin. Follow-up ultrasound in 4-6 months recommended. 2. No evidence of ovarian torsion. 3. Thickened endocervical canal which may represent the presence of blood products or polyp. Gynecological follow-up recommended. Electronically Signed: Benjamin Alva MD at 9:44 EDT , Assessment & Plan Assessment/Plan (1) Ovarian cyst: (2) Pelvic pain: PLAN: Plan After discussing the patient's diagnosis and treatment plan options, patient wishes to proceed with surgical management. I have discussed with the patient the risks, benefits, and alternatives of the procedure which include but are not limited to risks of anesthesia, bleeding, infection, possible damage to bowel, bladder, or surrounding vasculature which could lead to additional surgery to evaluate any complications. Patient agrees to procedure and wishes to proceed. ACOG/uptodate references given for additional information regarding procedure.
--- NOTE | 2024-02-24 13:30 | OV_PTH ---
PATIENT: FLAVIO HAWKINS LOC: [facility] [place] U#:[id number] AGE/SX: 43/F ROOM: RE02/24/[address]: Dr. Mirna Swann MD : 1980 BED: DIS: 02/24/2024 SPEC #: [id number] RECD: 02/25/24 08:00 STATUS: RUPAL LENNON #: [id number] WALDO: 02/24/24 13:[address]: Mirna Swann DEPT: SURGICAL PATHOLOGY RECD BY: Alix Bolton ENTERED: 02/25/24 10:31 SP TYPE: OVARY OTHR DR: Dr. Dorinda Barney DO Tissues: OVARIAN CYST Procedures: Surgery Specimen Level IV HEADER OPERATION: Laparoscopic, ovarian cystectomy PRE-OP DIAGNOSIS: Right ovarian cyst TISSUE SUBMITTED: Right ovarian cyst MICROSCOPIC DIAGNOSIS Right ovarian cyst, excision: Ovarian tissue with hemorrhagic infarction. Corpra abicans. Focal dystrophic microcalcifications. See comment. AM/mr 02/26/24 COMMENT A hemorrhagic and infarcted luteal cyst is suspected. Clinical correlation is suggested. MICROSCOPIC DESCRIPTION Slides are reviewed. GROSS DESCRIPTION Received in fixative is one container labeled with the patient's name and designated Right ovarian cyst. The specimen consists of multiple irregular dark-hernandez fragments of soft tissue ranging in size from 1.0 to 5.6cm. Serial sections reveal hemorrhagic reddish hernandez cut surfaces. Co Founder And President sections are submitted in four cassettes. AM/mr 02/25/2024 TC:5 CPT:32737
--- NOTE | 2024-02-24 14:03 | DCINST_ITS ---
Discharge Instructions Diet Discharge Diet: No restrictions Activity Discharge Activity: Return to Normal Activity, May Not Drive (for 2 weeks or while taking narcotic pain meds.), May Shower and May Take a Tub Bath (in 7 days) May resume sexual activity in: 1 week Weight Bearing Status: Full weight bearing Dressing / Incision Call your doctor if your incision/area has: Continuous Slow Oozing, Sudden Increased Bleeding, Increased Pain/ Swelling, Increased Redness and Foul Smelling Discharge Call your doctor if you observe: Fever of 101 or Higher, Using more than 1 pad per hour, Shortness of breath, Chest pain and Uncontrolled pain Suture Line Care: Avoid Pulling/Pushing and Avoid Pinching/Bending Remove Dressing in: 1 week (if present) Cleanse incision/area with: Soap & Water and Keep Dressing Clean & Dry Follow Up Care When: Call to make an appointment with your doctor for a fu/incision check in 1- 2 weeks. Test Results: Test results from this visit will be discussed in further detail at your follow- up appointment, if applicable. Discharge Plan Admission Attending Provider: Mrina Swann Primary Care Provider: Dorinda Barney Instructions Print Language: Persian Discharge Orders/Prescriptions Prescriptions: New oxycodone-acetaminophen [Percocet] 5-325 mg tablet 1 tab PO Q6H PRN (Reason: pain) 7 Days Qty: 20 0RF naproxen 500 mg tablet 500 mg PO BID PRN PRN (Reason: Pain) Qty: 30 1RF No Action multivitamin Tablet 1 tab PO DAILY metoclopramide HCl [metoclopramide HCl] 10 mg tablet 10 mg PO Q6H PRN PRN (Reason: Headache or nausea) Qty: 20 0RF Referrals / Follow Up: Dorinda Barney DO [Primary Care Provider] - Disposition Disposition (needs filled in before D/C Order can be placed): Home, Self Care
--- NOTE | 2024-02-24 14:03 | OP.PCM_ITS ---
Problems Associated Problem List Diagnoses (1) Ovarian cyst: (2) Pelvic pain: Report of Operation Date of Procedure: 02/24/24 Pre-Operative Diagnosis: acute pelvic pain ovarian cyst Post-Operative Diagnosis: ovarian torsion Surgery/Procedure Performed:: laparoscopic ovarian cystectomy Description of Surgical Findings:: right torsed ovary twice with large ecchymotic ovarian right multicystic ovary. untorsed Surgeon: Mirna Swann engraver set up operator: Nuha Becerra Type of Anesthesia: General and Local Special Medications: none Specimen's removed: ovarian cyst Drains: none Estimated Blood Loss (mL): 50 Fluids Replaced: crystalloid Description of Procedure: Patient was taken in the operating room and was placed under general anesthesia was prepped and draped in normal sterile fashion in the dorsal lithotomy position. Bladder was drained of clear urine and SCDs were on preoperatively. Uterus was sounded and a uterine manipulator was placed after dilating. Attention was then paid to the abdominal portion of the procedure and the umbilicus was elevated with towel clamps and injected with Marcaine and after a 5 mm incision was made and the Veress needle was entered into the abdomen confirmed to be intra-abdominal with a low opening pressure of less than 5 mmHg. Abdomen was insufflated with CO2 gas and a 5 mm optical trocar was placed under direct visualization. A right 5 and left lower quadrant 5 mm ports were placed under direct visualization. The torsed ovary was seen and untorsed, drained both cysts of clear fluid and the cysts were opened and removed. remaining ovary had bloodflow noted and hemostasis was obtained. white appearance was seen with vascularity and repeat torsion risk assessed and found to be minimal. hemoblast placed ovr the remaining ovarian bed. ovarian cyst removed through llq 5 mm bag. no other gross abnormalities were seen in the abdomen. All instruments removed from the abdomen after gas was desufflated. Port sites were closed with 3-0 Monocryl Steri's and op sites were applied. All instruments removed from the vagina and patient was awoken and taken recovery in stable condition. Grafts/Implants Used: none Procedure Start Time: 14:19 Procedure Stop Time: 15:02 Complications none Admit VTE Documentation VTE Present on Admission: No VTE Mechan Device Prophylaxis: SCD's Multi Select Codes Urinary/Genital Urinary/Genital CPT Codes: 87544 Laproscopic ablation endometriosis
[2024-02-24] MEDS: Bupivacaine 0.25% 30 ML Vial (15:10)
== END 2024-02-24 16:34 | disposition home or self-care (01) ==
LOC: ED 11:51 → SDC 11:58
PROVIDERS: Emergency Provider Emergency Medicine; PCP Family Medicine; Visit Provider Obstetrics & Gynecology
PROC: (CPT 58661; principal; 2024-02-24 13:15)
DX: N83.291 Other ovarian cyst, right side (principal); R10.2 Pelvic and perineal pain
CPT/HCPCS: 58662; 00840; 74177; 76830; 80048; 81001; 84703; 85025; 88305; 93005; 93976; 99284; J7030; J7120; Q9967; A4216; J2405

== ENCOUNTER → 2024-03-04 | Outpatient (CLI) | payer OTHER, SELFPAY ==
[2024-03-04 13:45] LABS: Free T3 2.7 pg/mL (2.18-3.98); T4 Free Direct 0.99 ng/dL (0.76-1.46); Thyroid Stim Hormone (TSH) 2.24 uIU/mL (0.358-3.74)
[2024-03-05 17:07] LABS: Thyroid Peroxidase AB 68 IU/mL (0-34)
== END | disposition home or self-care (01) ==
LOC: LAB.FUTURE 08:50 → BFHLAB 08:56
PROVIDERS: PCP Family Medicine; Referring Provider Family Medicine; Visit Provider Family Medicine
DX: E03.9 Hypothyroidism, unspecified (principal); R79.89 Other specified abnormal findings of blood chemistry
CPT/HCPCS: 36415; 84439; 84443; 84481; 86376; 86800

== ENCOUNTER → 2024-08-05 | Outpatient (CLI) | payer OTHER, SELFPAY ==
[2024-08-05 15:53] LABS: Free T3 2.8 pg/mL (2.18-3.98); T4 Free Direct 0.98 ng/dL (0.76-1.46)
== END | disposition home or self-care (01) ==
LOC: BFHLAB 13:29
PROVIDERS: PCP Family Medicine; Referring Provider Family Medicine; Visit Provider Family Medicine
DX: E03.9 Hypothyroidism, unspecified (principal)
CPT/HCPCS: 36415; 84439; 84443; 84481

== ENCOUNTER → 2025-02-19 | Outpatient (CLI) | payer OTHER, SELFPAY ==
[2025-02-19 10:35] LABS: Absolute Lymphocyte Count 1.62 X10^3/uL (0.83-4.51); Basophil# 0.02 X10^3/uL; Basophil% 0.4 % (0-1); Eosinophil# 0.15 X10^3/uL; Eosinophils% 2.9 % (0-5); Hematocrit 37.5 % (37-47); Hemoglobin 12.6 g/dL (12.0-15.0); Lymphocyte # 1.62 X10^3/ul (0.83-4.51); Lymphocyte % 31.3 % (19-41); Mean Corp Hgb Conc 33.6 g/dL (32-36); Mean Corpuscular Hgb 28.6 pg (27.0-32.0); Mean Corpuscular Volume 85.2 fL (81-99); Mean Platelet Vol. 8.8 fl (6.2-12.0); Monocyte# 0.39 X10^3/uL; Monocyte% 7.5 % (0-10); NRBC Flagged by Analyzer 0 % (0-5); Neutrophil # 2.97 X10^3/uL (2.7-7.7); Neutrophil % 57.5 % (47-70); Platelet Count 264 K/mm3 (150-450); RBC Distribution Width CV 12.6 % (11.6-14.6); RBC Distribution Width SD 38.9 fl (35.1-43.9); White Blood Count 5.2 K/mm3 (4.4-11.0)
[2025-02-19 11:20] LABS: ALB/GLOB Ratio 1.6 RATIO (0.9-2.4); AST(SGOT) 21 U/L (<=31); Alanine Aminotransfer ALT/SGPT 19 U/L (<=34); Albumin, Serum 4.5 g/dL (3.5-5.0); Alkaline Phosphatase 90 U/L (35-104); Anion Gap 9 (5-15); BUN 14 mg/dL (4-19); BUN/Creat Ratio 15.9 RATIO (10-20); Calcium,Total 9.2 mg/dL (7.6-11.0); Carbon Dioxide 24.6 mmol/L (21.0-32.0); Chloride 103 mmol/L (98-108); Cholesterol 165 mg/dL (<=200); Creatinine, Serum 0.89 mg/dL (0.70-1.20); EST Glomerular Filtration Rate 82 (>60); Free T3 3.2 pg/mL (2.18-3.98); Globulin 2.9 g/dL (2.2-4.2); Glucose 87 mg/dL (70-99); High Density Lipoprotein 43 mg/dL; Low Density Lipoprotein Calc. 99 mg/dL; Potassium 4.2 mmol/L (3.3-5.1); Protein, Total 7.3 g/dL (5.9-8.4); Sodium Level 137 mmol/L (133-145); Total Bilirubin 0.48 mg/dL (0.00-1.30); Triglycerides 112 mg/dL; Very Low Density Lipoprotein 22 mg/dL (5-40); Vitamin B12 685 pg/mL (180-914); Vitamin D,25 Hydroxy 33.1 ng/mL (30-100); cholesterol:hdl ratio screen 3.81
[2025-02-19 11:40] LABS: Iron 73 ug/dL (50-170)
[2025-02-19 16:33] LABS: Ferritin 22 ng/mL (22-378)
== END | disposition home or self-care (01) ==
LOC: MTLAB 08:16
PROVIDERS: PCP Family Medicine; Referring Provider Family Medicine; Visit Provider Family Medicine
DX: E03.9 Hypothyroidism, unspecified (principal); Z51.81 Encounter for therapeutic drug level monitoring; M25.50 Pain in unspecified joint; M79.10 Myalgia, unspecified site; E55.9 Vitamin D deficiency, unspecified; D50.9 Iron deficiency anemia, unspecified
CPT/HCPCS: 36415; 80053; 80061; 82306; 82607; 82728; 83540; 84439; 84443; 84481; 85025

== ENCOUNTER → 2025-09-16 | Outpatient (CLI) | payer OTHER, SELFPAY ==
[2025-09-16 12:33] LABS: Hematocrit 39.8 % (37-47); Hemoglobin 13.3 g/dL (12.0-15.0); Immature Granulocytes Count 0.020 X10^3/uL (0.0-0.0); Mean Corp Hgb Conc 33.4 g/dL (32-36); Mean Corpuscular Volume 84.3 fL (81-99); Mean Platelet Vol. 9.0 fl (6.2-12.0); NRBC Flagged by Analyzer 0 % (0-5); Platelet Count 303 K/mm3 (150-450); RBC Distribution Width CV 12.7 % (11.6-14.6); RBC Distribution Width SD 38.9 fl (35.1-43.9); Red Blood Count 4.72 M/mm3 (4.2-5.4); White Blood Count 5.1 K/mm3 (4.4-11.0)
[2025-09-16 12:55] LABS: AST(SGOT) 20 U/L (<=31); Alanine Aminotransfer ALT/SGPT 15 U/L (<=34); Albumin, Serum 4.7 g/dL (3.5-5.0); Alkaline Phosphatase 91 U/L (35-104); Anion Gap 12 (5-15); BUN 15 mg/dL (4-19); BUN/Creat Ratio 16.7 RATIO (10-20); Calcium,Total 9.5 mg/dL (7.6-11.0); Carbon Dioxide 24.2 mmol/L (21.0-32.0); Chloride 105 mmol/L (98-108); Free T3 3.6 pg/mL (2.18-3.98); Globulin 2.8 g/dL (2.2-4.2); Glucose 92 mg/dL (70-99); Potassium 4.5 mmol/L (3.3-5.1)
--- OUTSIDE RECORDS SUMMARY | 2025-09-16 12:58 | XMS RPT_ITS | CCD ---
Author Organization [facility] Care Team Providers Care Orthopedics Teacher Name Role Phone Dr. Dorinda Barney Primary Care Provider Dr. Dorinda Barney Referring Provider [phone] Mirna Swann Attending Provider [phone] Savita ROA, Dr. Seth Primary Care Provider Savita ROA, Dr. Seth Referring Provider [phone] Stephen Dowling Attending Provider [phone] Savita ROA, Dr. Seth Attending Provider [phone] Savita ROA, Dr. Seth Primary Care Provider Savita ROA, Dr. Seth Referring Provider Homer Irwin Attending Provider [phone] Malys, Dorinda Primary Care Unavailable Teri Ho NP Attending Unavailable Malys, Dorinda Referring Unavailable Malys, Dorinda Attending Unavailable Malys, Dorinda Primary Care Unavailable Malys, Dorinda Primary Care Unavailable Stephen Daniels Attending Unavailable Malys, Dorinda Referring Unavailable Malys, Dorinda Primary Care Unavailable Homer Munoz Attending Unavailable Malys, Dorinda Referring Unavailable Malys, Dorinda Primary Care Unavailable Malys, Dorinda Attending Unavailable Malys, Dorinda Referring Unavailable Malys, Dorinda Primary Care Unavailable Malys, Dorinda Attending Unavailable Malys, Dorinda Referring Unavailable Medications Current Medications Medication Drug Class(es) Dates Sig (Normalized) Sig (Original) levothyroxine sodium 0.025 mg oral tablet (1 source) l-Thyroxine Start: 05-22-2025 take 1 tablet by mouth once daily Levothyroxine 25 mcg tablet Active 25 ug PO daily May 22, 2025 12:00am Multivitamin preparation (3 sources) Start: 04-20-2020 take 1 tablet by mouth once daily Multivitamin Active 1 TABLET PO DAILY April 20, 2020 12:00am Multivitamin tablet (2 sources) Start: 04-20-2020 Multivitamin tablet Active 1 {tbl} PO DAILY April 20, 2020 12:00am Completed/Discontinued Medications Medication Drug Class(es) Dates Sig (Normalized) Sig (Original) acetaminophen 325 mg / HYDROcodone bitartrate 5 mg oral tablet (5 sources) Opioid Agonist Start: 11-09-2018 End: 11-11-2018 Hydrocodone-Acetami nophen 1 TABLET tablet Discontinued 1 {tbl} PO EVERY 4 HOURS NEEDED as needed for Pain 7 2 0 November 09, 2018 1:00am November 10, 2018 1:00am November 11, 2018 1:08am Pain, unspecified Start: 11-09-2018 End: 11-11-2018 take 1 tablet by mouth every four hours as needed Hydrocodone-Acetaminophen Discontinued 1 TABLET PO EVERY 4 HOURS NEEDED 7 2 November 09, 2018 1:00am November 11, 2018 1:08am acetaminophen 325 mg / oxyCODONE hydrochloride 5 mg oral tablet (7 sources) Opioid Agonist Start: 02-24-2024 End: 03-05-2024 Oxycodone-Acetaminophen (Percocet) 5-325 mg tablet Discontinued 1 {tbl} PO EVERY 6 HOURS as needed for pain 20 7 0 February 24, 2024 March 05, 2024 4:08pm Cyst of ovary History of ovarian cystectomy Unspecified ovarian cyst, unspecified side Other specified postprocedural states Personal history of other diseases of the female genital tract Start: 05-17-2020 End: 05-24-2020 Oxycodone-Acetaminophen 1 TA BLET tablet Discontinued 1 - 2 {tbl} PO EVERY 6 HOURS NEEDED as needed for Pain 15 7 0 May 17, 2020 May 23, 2020 12:00am May 24, 2020 12:02am Other acute postprocedural pain Start: 05-17-2020 End: 05-24-2020 take 1 tablet by mouth every six hours as needed Oxycodone-Acetaminophen Discontinued 1 - 2 TABLET PO EVERY 6 HOURS NEEDED 15 7 May 17, 2020 May 24, 2020 12:02am [id number] 200 actuat albuterol 0.09 mg/actuat metered dose inhaler (5 sources) beta2-Adrenergic Agonist Start: 05-20-2019 End: 04-20-2020 Albuterol Sulfate 90 mcg/actuation HFA aerosol inhaler Discontinued 2 NMA INHALATION EVERY 6 HOURS as needed for shortness of breath or wheezing 8.5 0 May 20, 2019 12:00am April 20, 2020 1:16pm Start: 05-20-2019 End: 04-20-2020 take 1 puff(s) by inhalation every six hours Albuterol Sulfate Discontinued 2 PUFF INHALATION EVERY 6 HOURS 8.5 May 20, 2019 12:00am April 20, 2020 1:16pm amoxicillin 500 mg oral capsule (10 sources) Penicillin-class Antibacterial Start: 10-10-2022 End: 10-20-2022 take 1 capsule by mouth three times daily Amoxicillin 500 mg capsule Discontinued 500 mg PO THREE TIMES A DAY 30 10 0 October 10, 2022 1:00am October 19, 2022 1:00am October 20, 2022 1:12am Start: 11-29-2021 End: 12-09-2021 take 2 capsules by mouth twice daily Amoxicillin 500 mg capsule Discontinued 1000 mg PO TWICE A DAY 40 10 0 November 29, 2021 1:00am December 08, 2021 1:00am December 09, 2021 1:06am Start: 11-29-2021 End: 12-09-2021 take 1000 mg by mouth twice daily Amoxicillin Discontinued 1000 MG PO TWICE A DAY 40 10 November 29, 2021 1:00am December 09, 2021 1:06am aspirin 81 mg oral tablet (5 sources) Platelet Aggregation Inhibitor, Nonsteroidal Anti-inflammatory Drug Start: 09-09-2017 End: 10-09-2017 take 81 mg by mouth once daily Aspirin Discontinued 81 mg PO DAILY September 09, 2017 1:00am October 09, 2017 8:56am blood pressures azithromycin 250 mg oral tablet (5 sources) Macrolide Antimicrobial Start: 05-20-2019 End: 04-20-2020 take 2-5 tablets by mouth once daily Azithromycin 250 mg tablet Discontinued 0 PO .COMPLEX 6 0 May 20, 2019 12:00am April 20, 2020 1:16pm take 500 mg today (day 1), then 250 mg for 4 days (days 2-5) PO cetirizine hydrochloride 10 mg oral capsule (5 sources) Histamine-1 Receptor Antagonist Start: 05-20-2019 End: 04-20-2020 take 1 capsule by mouth once daily Cetirizine (Zyrtec) 10 mg capsule Discontinued 10 mg PO DAILY May 20, 2019 12:00am April 20, 2020 1:16pm Desogestrel / Ethinyl Estradiol (4 sources) Progestin, Estrogen Start: 04-23-2023 End: 07-02-2023 take 0.15 tablet by mouth once daily Desogestrel-Ethin yl Estradiol (Apri) 0.15-0.03 mg tablet Discontinued 1 {tbl} PO daily 03 10April 23, 2023 12:00am July 02, 2023 9:37am Start: 04-23-2023 End: 07-02-2023 take 0.15 tablet by mouth once daily Desogestrel-Ethinyl Estradiol (Apri) 0.15-0.03 mg tablet Discontinued 1 {tbl} PO daily April 23, 2023 12:00am July 02, 2023 9:37am Start: 04-23-2023 Desogestrel-Et hinyl Estradiol (Apri) 0.15-0.03 mg tablet Active 1 TABLET PO daily April 23, 2023 12:00am ibuprofen 200 mg oral tablet (2 sources) Nonsteroidal Anti-inflammatory Drug Start: 03-05-2024 End: 05-22-2025 take 1 tablet by mouth every six hours as needed Ibuprofen (Advil) 200 mg tablet Discontinued 200 mg PO EVERY 6 HOURS as needed March 05, 2024 12:00am May 22, 2025 11:22am labetalol hydrochloride 100 mg oral tablet (5 sources) beta-Adrenergic Marlee Start: 09-09-2017 End: 10-09-2017 take 1 tablet by mouth twice daily Labetalol 100 MG tablet Discontinued 100 mg PO TWICE A DAY September 09, 2017 1:00am October 09, 2017 8:56am htn Methotrexate (5 sources) Folate Analog Metabolic Inhibitor Start: 11-09-2018 End: 05-20-2019 Methotrexate Discontinued November 09, 2018 1:00am May 20, 2019 12:10pm methylPREDNISolone 4 mg oral tablet (5 sources) Corticosteroid Start: 05-20-2019 End: 04-20-2020 take 1 tablet by mouth once Methylprednisolone (Medrol (Kade)) 4 mg tablets,dose pack Discontinued 0 PO per package directions 21 May 20, 2019 12:00am April 20, 2020 1:16pm PO PER PKG DIR metoclopramide 10 mg oral tablet (4 sources) Dopamine-2 Receptor Antagonist Start: 05-10-2023 End: 05-22-2025 take 1 tablet by mouth every six hours as needed for nausea Metoclopramide Hcl 10 mg tablet Discontinued 10 mg PO EVERY 6 HOURS NEEDED as needed for Headache or nausea 20 May 10, 2023 3:18am May 22, 2025 11:22am naproxen 500 mg oral tablet (7 sources) Nonsteroidal Anti-inflammatory Drug Start: 02-24-2024 End: 03-05-2024 take 1 tablet by mouth twice daily as needed for pain Naproxen 500 mg tablet Discontinued 500 mg PO TWICE DAILY NEEDED as needed for Pain 30 February 24, 2024 12:00am March 05, 2024 4:08pm Start: 05-17-2020 End: 05-30-2020 take 250-500 mg by mouth every eight hours as needed for pain Naproxen 250 MG tablet Discontinued 250 - 500 mg PO EVERY 8 HOURS NEEDED as needed for MILD PAIN 30 May 17, 2020 12:00am May 30, 2020 1:47pm ondansetron 4 mg disintegrating oral tablet (5 sources) Serotonin-3 Receptor Antagonist Start: 11-09-2018 End: 05-20-2019 take 1 tablet by mouth every eight hours as needed for nausea Ondansetron 4 MG tablet Discontinued 4 mg PO EVERY 8 HOURS NEEDED as needed for Nausea November 09, 2018 1:00am May 20, 2019 12:10pm sulfamethoxazole 800 mg / trimethoprim 160 mg oral tablet (2 sources) Dihydrofolate Reductase Inhibitor Antibacterial, Sulfonamide Antimicrobial Start: 03-05-2024 End: 03-12-2024 Sulfamethoxazole- Trimethoprim (Bactrim Ds) 800-160 mg tablet Discontinued 1 {tbl} PO TWICE A DAY 14 7 March 05, 2024 12:00am March 11, 2024 12:00am March 12, 2024 12:05am tobramycin 3 mg/ml ophthalmic solution (5 sources) Aminoglycoside Antibacterial Start: 10-10-2022 End: 05-10-2023 take 0.3 drop(s) into the eye(s) every two hours Tobramycin 0.3 % drops Discontinued 1 NMA OPHTHALMIC Q2H 5 0 October 10, 2022 1:00am May 10, 2023 1:46am to affected eye(s) while awake for 5 days 24 hr venlafaxine 75 mg extended release oral capsule (2 sources) Serotonin and Norepinephrine Reuptake Inhibitor Start: 07-02-2023 End: 02-24-2024 take 1 capsule by mouth once daily Venlafaxine (Effexor Xr) 75 mg capsule,extended release 24hr Discontinued 75 mg PO DAILY 30 July 02, 2023 12:00am February 24, 2024 7:51am Problems Problem Classification Problem Date Documented Date Episodic/Chronic Abdominal pain (7 sources) Pain in pelvis; Translations: [Pelvic and perineal pain] 05-09-2021 Episodic Headache; including migraine (4 sources) Migraine; Translations: [Migraine, unspecified, not intractable, without status migrainosus] 05-10-2023 Chronic Immunizations and screening for infectious disease (5 sources) Contact with and (suspected) exposure to other viral communicable diseases; Translations: [Contact with or suspected exposure to other viral communicable disease] 10-10-2022 Episodic Inflammation; infection of eye (except that caused by tuberculosis or sexually transmitteddisease) (5 sources) Acute conjunctivitis; Translations: [Unspecified acute conjunctivitis, right eye] 10-10-2022 Episodic Menopausal disorders (6 sources) Menopausal syndrome; Translations: [Menopausal and female climacteric states] 04-23-2023 Chronic Comment on above: didn't tolerate OCP due to migraines, support given. plan effexor for mood and vasomotor symptoms. fu and consider adipex for weight management. Other nutritional; endocrine; and metabolic disorders (2 sources) Body mass index 30+ - obesity; Translations: [Body mass index (BMI) 36.0-36.9, adult] 07-02-2023 Chronic Other upper respiratory infections (10 sources) Acute frontal sinusitis; Translations: [Acute frontal sinusitis, unspecified] 11-29-2021 Episodic Otitis media and related conditions (10 sources) Acute right otitis media; Translations: [Otitis media, unspecified, right ear] 10-10-2022 Episodic Ovarian cyst (7 sources) Cyst of ovary; Translations: [Unspecified ovarian cyst, left side] 05-09-2021 Episodic Comment on above: laparoscopic bilater al salpingectomy and left oophorectomy Thyroid disorders (1 source) Hypothyroidism, unspecified; Translations: [Hypothyroidism, unspecified] Onset: 02-22-2025 Chronic Unclassified (1 source) Contact with and (suspected) exposure to COVID-19; Translations: [Contact with and (suspected) exposure to COVID-19] Onset: 12-14-2024 Results Test Name Value Interpretation Reference Range Facility Urgent Care Visit Reporton 0 05-22-2025 Urgent Care Visit Report [facility] [address], [address] [place] [address] OFFICE VISIT Date of Service: 05/22/25 MR#: [id number] Acct: [id number] Name: DAVCLARYJOEJUDSONFLAVIOPRADIP TANG Rep #: [id number] : 1980 Provider: NAEL Madrigal Age/Sex: 44/F Location: [facility] Status: Signed Intake Vital Signs 03/05/24 16:08 05/22/25 11:23 Height 5 ft 7 in 5 ft 7 in Weight: 247 lb BMI 38.7 BP 142/86 H Blood Pressure Location Lt brachial Position Sitting Pulse 103 H Pulse Source Monitor Temp 98.9 F Temp Source Oral Pulse Oximetry (%) 97 Oxygen Delivery Method room air Intake Visit Reasons: R EAR PAIN Chief Complaint: Right Ear Pain Accompanied by: Self Allergies No Known Allergies Allergy (Verified 05/22/25 11:22) Medications ???Medication ???Instructions ???Recorded ???Confirmed ???Type multivitamin 1 tab PO DAILY 04/20/20 05/22/25 H ist[facility] ciprofloxacin 0.3 %-dexamethasone 4 drp otic (ear) BID 7 days #7.5 mL 05/22/25 05/22/25 Rx 0.1 % ear drops,suspension levothyroxine 25 mcg tablet 25 mcg PO QDAY 05/22/25 05/22/25 [facility] ist[facility] Nurse's Note: Right ear pain, muffled hearing, feels swollen. X 3 days. Taking left over Augmentin from . [facility] Medical History Acute pharyngitis Acute otitis media, right Acute conjunctivitis, right eye Contact with and (suspected) exposure to other viral communicable diseases Acute frontal sinusitis, unspecified Otitis media, left Hay fever Surgical History S/P bilateral salpingo-oophorectomy ( 05/17/20) [place] teeth extracted Hx of section Family History Father Parkinsons disease Grandmother Breast cancer Lupus Grandfather Myocardial infarction Sister Crohn's disease Daughter Spina bifida Unknown Breast cancer Social History household members: spouse and children number of children: 4 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 history of recent travel: No sexually active: Yes Smoking Status: Never smoker alcohol intake: current alcohol intake frequency: a few times a month Alcohol type: wine substance use type: does not use caffeine: Yes what type of physical activity do you participate in: walking seatbelt use: always do you feel safe at home: Yes additional social history: - Liu Garces ([facility] [employer]) Female Reproductive History Menstrual Ab spontaneous: 3 Ectopics: 1 HPI HPI Chief Complaint: Right Ear Pain Details: FLAVIO GARCES, is a 44 F who presents to the office today for evaluation of right ear pain. Patient states that her ear pain began approximately 3 days ago after spending a large amount of time in the pool. She states that the pain has progressively worsened over the last several days and does not seem to respond to OTC analgesia. Patient admits to taking some left over Augmentin (875-125mg) twice daily over the last 3 days with no improvement of symptoms. In addition to pain patient has also noticed swelling of her external ear and yellowish discharge. ROS Const Constitutional: No chills, fatigue, fever(s) or headache(s) ENT ENT: Positive for ear or mastoid pain, ear discharge and ear pressure; No hearing loss, tinnitus or headache(s) Neuro Neurology: No headache(s) Endo Endocrine: No fatigue Exam Const General: cooperative, healthy appearing and no acute distress HENMT Head: normal to inspection Ears: hearing grossly normal bilaterally, TM normal on the left, EAC abnormal erythema on the right, edema on the right, EAC tenderness on the right and otic discharge clear on the right and unable to visualize TM on the right Neck Neck: normal visual inspection Neck mass: No Lymphatic: no lymphadenopathy noted Coding Level of Care Code Established Pt Off vis,est,level 2 Patient Type Established History Expanded Problem Focused Exam Problem Focused Medical Decision Making Low Complexity Diagnoses Acute otitis externa of right ear, unspecified type H60.501 Otitis externa type: unspecified type Chronicity: acute Assessment and Plan Assessment and Plan (1) Otitis externa of right ear: Status: Acute Qualifiers: Otitis externa type: unspecified type Chronicity: acute Qualified Code(s): H60.501 - Unspecified acute noninfective otitis externa, right ear Plan: Treat as indicated below. Ear care reviewed as well as appropriate f/u with PCP or [facility] if persistent or worsening symptoms. EAC patent on exam, however based on sign (more content not included)... Normal [facility] Absolute lymphocyte countOrd ered By: Dorinda Barney on 02-19-2025 Lymphocytes Auto (Unsp spec) [#/Vol] 1.62 10*3/uL 0.83-4.51 [facility] Absolute neutrophil countOrd ered By: Dorinda Barney on 02-19-2025 Neutrophils (Bld) [#/Vol] 3.0 10*3/uL 2.0-7.7 [facility] Anion gap in Serum or Plasma Ordered By: Dorinda Barney on 02-19-2025 Anion gap [Moles/Vol] 9 mmol/L 5-15 [facility] Automated lymphocyte count a s percentage of total leukocytesOrdered By: Dorinda Barney on 02-19-2025 Lymphocytes/100 WBC Auto (Unsp spec) 31.3 % 19-41 [facility] BUN/creatinine ratioOrdered By: Dorinda Barney on 02-19-2025 Urea nitrogen/Creatinine [Mass ratio] 15.9 mg/mg 10-20 [facility] Basophil percentageOrdered B y: Dorinda Barney on 02-19-2025 Basophils/100 WBC (Bld) 0.4 % 0-1 [facility] Bilirubin, totalOrdered By: Dorinda Barney on 02-19-2025 Bilirubin [Mass/Vol] 0.48 mg/dL 0.00-1.30 [facility] CBC W/Diff, Automatedon 02-04 Absolute Lymph 1.62 X10 3/uL Normal 0.83-4.51 [facility] Comment on above: Performed By: #### L 506.1001, L506.0400, L503.6550, L500.4050, L503.6150, L501.9520, L503.0106, L100.0100, L501.40465, L500.4100 #### [facility] [address] [place], [address] Absolute Neut 3.0 X10 3/uL Normal 2.0-7.7 [facility] Comment on above: Performed By: #### L 506.1001, L506.0400, L503.6550, L500.4050, L503.6150, L501.9520, L503.0106, L100.0100, L501.66858, L500.4100 #### [facility] [address] [place], [address] Basophils/100 WBC (Bld) 0.4 % Normal 0-1 [facility] Comment on above: Performed By: #### L 506.1001, L506.0400, L503.6550, L500.4050, L503.6150, L501.9520, L503.0106, L100.0100, L501.15408, L500.4100 #### [facility] [address] [place] [place], [address] Eosinophils/100 WBC (Bld) 2.9 % Normal 0-5 [facility] Comment on above: Performed By: #### L 506.1001, L506.0400, L503.6550, L500.4050, L503.6150, L501.9520, L503.0106, L100.0100, L501.34434, L500.4100 #### [facility] [address] [place], [address] Erythrocyte distribution width (RBC) [Ratio] 12.6 % Normal 11.6-14.6 [facility] Comment on above: Performed By: #### L 506.1001, L506.0400, L503.6550, L500.4050, L503.6150, L501.9520, L503.0106, L100.0100, L501.64388, L500.4100 #### [facility] [address] [place], [address] Hematocrit (Bld) [Volume fraction] 37.5 % Normal 37-47 [facility] Comment on above: Performed By: #### L 506.1001, L506.0400, L503.6550, L500.4050, L503.6150, L501.9520, L503.0106, L100.0100, L501.47627, L500.4100 #### [facility] [address] [place], [address] Hemoglobin (Bld) [Mass/Vol] 12.6 g/dL Normal 12.0-15.0 [facility] Comment on above: Performed By: #### L 506.1001, L506.0400, L503.6550, L500.4050, L503.6150, L501.9520, L503.0106, L100.0100, L501.50932, L500.4100 #### [facility] [address] [place], [address] IG% 0.400 Normal 0.0-0.9 [facility] Comment on above: Result Comment: IG% - Immature Granulocytes (promyelocytes, myelocytes and metamyelocytes) > 1% indicates that a LEFT SHIFT is Present. Performed By: #### L 506.1001, L506.0400, L503.6550, L500.4050, L503.6150, L501.9520, L503.0106, L100.0100, L501.49607, L500.4100 #### [facility] [address] [place], [address] Lymphocytes/100 WBC (Bld) 31.3 % Normal 19-41 [facility] Comment on above: Performed By: #### L 506.1001, L506.0400, L503.6550, L500.4050, L503.6150, L501.9520, L503.0106, L100.0100, L501.27249, L500.4100 #### [facility] [address] [place], [address] MCH (RBC) [Entitic mass] 28.6 pg Normal 27.0-32.0 [facility] Comment on above: Performed By: #### L 506.1001, L506.0400, L503.6550, L500.4050, L503.6150, L501.9520, L503.0106, L100.0100, L501.77421, L500.4100 #### [facility] [address] [place] [place], [address] MCHC (RBC) [Mass/Vol] 33.6 g/dL Normal 32-36 [facility] Comment on above: Performed By: #### L 506.1001, L506.0400, L503.6550, L500.4050, L503.6150, L501.9520, L503.0106, L100.0100, L501.46127, L500.4100 #### [facility] [address] [place], [address] MCV (RBC) [Entitic vol] 85.2 fL Normal 81-99 [facility] Comment on above: Performed By: #### L 506.1001, L506.0400, L503.6550, L500.4050, L503.6150, L501.9520, L503.0106, L100.0100, L501.90413, L500.4100 #### [facility] [address] [place], [address] Monocytes/100 WBC (Bld) 7.5 % Normal 0-10 [facility] Comment on above: Performed By: #### L 506.1001, L506.0400, L503.6550, L500.4050, L503.6150, L501.9520, L503.0106, L100.0100, L501.14035, L500.4100 #### [facility] [address] [place], [address] Neutrophils/100 WBC (Bld) 57.5 % Normal 47-70 [facility] Comment on above: Performed By: #### L 506.1001, L506.0400, L503.6550, L500.4050, L503.6150, L501.9520, L503.0106, L100.0100, L501.19516, L500.4100 #### [facility] [address] [place], [address] Nucleated RBC (Bld) [#/Vol] 0 10*3/uL Normal 0-5 [facility] Comment on above: Performed By: #### L 506.1001, L506.0400, L503.6550, L500.4050, L503.6150, L501.9520, L503.0106, L100.0100, L501.70574, L500.4100 #### [facility] [address] [place], [address] Platelet mean volume (Bld) [Entitic vol] 8.8 fL Normal 6.2-12.0 [facility] Comment on above: Performed By: #### L 506.1001, L506.0400, L503.6550, L500.4050, L503.6150, L501.9520, L503.0106, L100.0100, L501.05217, L500.4100 #### [facility] [address] [place], [address] Platelets (Bld) [#/Vol] 264 10*3/uL Normal 150-450 [facility] Comment on above: Performed By: #### L 506.1001, L506.0400, L503.6550, L500.4050, L503.6150, L501.9520, L503.0106, L100.0100, L501.16247, L500.4100 #### [facility] [address] [place], [place], [id number] (230) RBC (Bld) [#/Vol] 4.40 10*6/uL Normal 4.2-5.[address] [facility] Comment on above: Performed By: #### L 506.1001, L506.0400, L503.6550, L500.4050, L503.6150, L501.9520, L503.0106, L100.0100, L501.98705, L500.4100 #### [facility] [address] [place], [place], [phone] ([address] RDW SD 38.9 fl Normal 35.1-43.9 [facility] Comment on above: Performed By: #### L 506.1001, L506.0400, L503.6550, L500.4050, L503.6150, L501.9520, L503.0106, L100.0100, L501.70144, L500.4100 #### [facility] [address] [place], [address] WBC (Bld) [#/Vol] 5.2 10*3/uL Normal 4.4-11.0 [facility] Comment on above: Performed By: #### L 506.1001, L506.0400, L503.6550, L500.4050, L503.6150, L501.9520, L503.0106, L100.0100, L501.15755, L500.4100 #### [facility] [address] [place], [place], [phone] Calculated very low density lipoprotein (VLDL) cholesterol measurementOrdered By: Dorinda Barney on 02-19-2025 Calculated very low density lipoprotein (VLDL) cholesterol measurement 22 mg/dL 5-40 [facility] Carbon dioxide, total [Moles /volume] in Central venous bloodOrdered By: Dorinda Barney on 02-19-2025 CO2 [Moles/Vol] 24.6 mmol/L 21.0-32.0 [facility] Chloride assayOrdered By: Eulalia Barney on 02-19-2025 Chloride [Moles/Vol] 103 mmol/L 98-108 [facility] Comprehensive Metabolic Prof ilon 02-19-2025 Albumin [Mass/Vol] 4.5 g/dL Normal 3.5-5.0 [facility] Comment on above: Performed By: #### L 506.1001, L506.0400, L503.6550, L500.4050, L503.6150, L501.9520, L503.0106, L100.0100, L501.68114, L500.4100 #### [facility] [address] [place], [place], [phone] Albumin/Globulin [Mass ratio] 1.6 {ratio} Normal 0.9-2.4 [facility] Comment on above: Performed By: #### L 506.1001, L506.0400, L503.6550, L500.4050, L503.6150, L501.9520, L503.0106, L100.0100, L501.47022, L500.4100 #### [facility] [address] [place], [place], [phone] ALK PHOS 90 U/L Normal 35-104 [facility] Comment on above: Performed By: #### L 506.1001, L506.0400, L503.6550, L500.4050, L503.6150, L501.9520, L503.0106, L100.0100, L501.25428, L500.4100 #### [facility] [address] [place], [place], [phone] (035) ALT [Catalytic activity/Vol] 19 U/L Normal <=34 [facility] Comment on above: Performed By: #### L 506.1001, L506.0400, L503.6550, L500.4050, L503.6150, L501.9520, L503.0106, L100.0100, L501.63787, L500.4100 #### [facility] [address] [place], [place], [phone] AST [Catalytic activity/Vol] 21 U/L Normal <=31 [facility] Comment on above: Performed By: #### L 506.1001, L506.0400, L503.6550, L500.4050, L503.6150, L501.9520, L503.0106, L100.0100, L501.45815, L500.4100 #### [facility] [address] [place], [place], [phone] Bilirubin [Mass/Vol] 0.48 mg/dL Normal 0.00-1.30 [facility] Comment on above: Performed By: #### L 506.1001, L506.0400, L503.6550, L500.4050, L503.6150, L501.9520, L503.0106, L100.0100, L501.30005, L500.4100 #### [facility] [address] [place], [place], [phone] ([phone]) BUN/CRE 15.9 RATIO Normal 10-20 [facility] Comment on above: Performed By: #### L 506.1001, L506.0400, L503.6550, L500.4050, L503.6150, L501.9520, L503.0106, L100.0100, L501.87414, L500.4100 #### [facility] [address] [place], [address] Calcium [Mass/Vol] 9.2 mg/dL Normal 7.6-11.0 [facility] Comment on above: Performed By: #### L 506.1001, L506.0400, L503.6550, L500.4050, L503.6150, L501.9520, L503.0106, L100.0100, L501.75454, L500.4100 #### [facility] [address] [place], [place], [phone] ([phone]) Chloride [Moles/Vol] 103 mmol/L Normal 98-108 [facility] Comment on above: Performed By: #### L 506.1001, L506.0400, L503.6550, L500.4050, L503.6150, L501.9520, L503.0106, L100.0100, L501.60844, L500.4100 #### [facility] [address] [place], [address] CO2 [Moles/Vol] 24.6 mmol/L Normal 21.0-32.0 [facility] Comment on above: Performed By: #### L 506.1001, L506.0400, L503.6550, L500.4050, L503.6150, L501.9520, L503.0106, L100.0100, L501.26917, L500.4100 #### [facility] [address] [place], [address] Creatinine [Mass/Vol] 0.89 mg/dL Normal 0.70-1.20 [facility] Comment on above: Performed By: #### L 506.1001, L506.0400, L503.6550, L500.4050, L503.6150, L501.9520, L503.0106, L100.0100, L501.81370, L500.4100 #### [facility] [address] [place], [place], [phone] GAP 9 Normal 5-15 [facility] Comment on above: Performed By: #### L 506.1001, L506.0400, L503.6550, L500.4050, L503.6150, L501.9520, L503.0106, L100.0100, L501.28332, L500.4100 #### [facility] [address] [place], [address] GFR/1.73 sq M.predicted among non-blacks MDRD (S/P/Bld) [Vol rate/Area] 82 mL/min/{1.73_m2} Normal >60 [facility] Comment on above: Result Comment: mL/m in/1.73m2 CKD-EPI Creatinine Equation (2020) Performed By: #### L 506.1001, L506.0400, L503.6550, L500.4050, L503.6150, L501.9520, L503.0106, L100.0100, L501.30384, L500.4100 #### [facility] [address] [place], [place], [phone] Globulin (S) [Mass/Vol] 2.9 g/dL Normal 2.2-4.2 [facility] Comment on above: Performed By: #### L 506.1001, L506.0400, L503.6550, L500.4050, L503.6150, L501.9520, L503.0106, L100.0100, L501.31701, L500.4100 #### [facility] [address] [place], [address] Glucose [Mass/Vol] 87 mg/dL Normal 70-99 [facility] Comment on above: Performed By: #### L 506.1001, L506.0400, L503.6550, L500.4050, L503.6150, L501.9520, L503.0106, L100.0100, L501.94421, L500.4100 #### [facility] [address] [place], [address] Potassium [Moles/Vol] 4.2 mmol/L Normal 3.3-5.1 [facility] Comment on above: Performed By: #### L 506.1001, L506.0400, L503.6550, L500.4050, L503.6150, L501.9520, L503.0106, L100.0100, L501.17350, L500.4100 #### [facility] [address] [place], [address] Sodium [Moles/Vol] 137 mmol/L Normal 133-145 [facility] Comment on above: Performed By: #### L 506.1001, L506.0400, L503.6550, L500.4050, L503.6150, L501.9520, L503.0106, L100.0100, L501.73869, L500.4100 #### [facility] [address] [place], [address] T PROT 7.3 g/dL Normal 5.9-8.4 [facility] Comment on above: Performed By: #### L 506.1001, L506.0400, L503.6550, L500.4050, L503.6150, L501.9520, L503.0106, L100.0100, L501.62885, L500.4100 #### [facility] [address] [place], [place], [phone] (351) Urea nitrogen [Mass/Vol] 14 mg/dL Normal 4-19 [facility] Comment on above: Performed By: #### L 506.1001, L506.0400, L503.6550, L500.4050, L503.6150, L501.9520, L503.0106, L100.0100, L501.79916, L500.4100 #### [facility] [address] [place], [place], [phone] ([phone]) Eosinophil percentageOrdered By: Dorinda Barney on 02-19-2025 Eosinophils/100 WBC (Bld) 2.9 % 0-5 [facility] Erythrocyte distribution wid th ratioOrdered By: Dorinda Barney on 02-19-2025 Erythrocyte distribution width (RBC) [Ratio] 12.6 % 11.6-14.6 [facility] Erythrocyte distribution wid th standard deviationOrdered By: Dorinda Barney on 02-19-2025 Erythrocyte distribution width (RBC) [Ratio] 38.9 fl 35.1-43.9 [facility] Ferritinon 02-19-2025 Ferritin [Mass/Vol] 22 ng/mL Normal 22-[address] [facility] Comment on above: Performed By: #### L 501.78336, L506.0400, L501.9520 #### [facility] [address] [place], [place], [phone] (132) Free T3on 02-19-2025 Free T3 [Mass/Vol] 3.2 pg/mL Normal 2.18-3.98 [facility] Comment on above: Performed By: #### L 506.1001, L506.0400, L503.6550, L500.4050, L503.6150, L501.9520, L503.0106, L100.0100, L501.34701, L500.4100 #### [facility] [address] [place], [place], [phone] (663) Free E3Minidyj By: Dorinda cuba on 02-19-2025 Free T3 [Mass/Vol] 3.2 pg/mL 2.18-3.98 [facility] Glomerular filtration rate ( GFR) estimation/1.73 sq m using serum, plasma, or whole bOrdered By: Dorinda Barney on 02-19-2025 GFR/1.73 sq M.predicted among non-blacks MDRD (S/P/Bld) [Vol rate/Area] 82 mL/min/{1.73_m2} >60 [facility] Comment on above: mL/min/1.73m2 CKD-EP I Creatinine Equation (2020) Hematocrit Auto (Bld) [Volum e fraction]Ordered By: Dorinda Barney on 02-19-2025 Hematocrit (Bld) [Volume fraction] 37.5 % 37-47 [facility] Hemoglobin measurementOrdere d By: Dorinda Barney on 02-19-2025 Hemoglobin (Bld) [Mass/Vol] 12.6 g/dL 12.0-15.0 [facility] Immature granulocytes/100 WB C Auto (Bld)Ordered By: Dorinda Barney on 02-19-2025 Immature granulocytes/100 WBC (Bld) 0.400 % 0.0-0.9 [facility] Comment on above: IG% - Immature Granu locytes (promyelocytes, myelocytes and metamyelocytes) > 1% indicates that a LEFT SHIFT is Present. Ironon 02-19-2025 Iron [Mass/Vol] 73 ug/dL Normal 50-170 [facility] Comment on above: Performed By: #### L 501.35926, L506.0400, L501.9520 #### [facility] [address] [place], [place], [phone] Iron measurement (mass/mass) Ordered By: Dorinda Barney on 02-19-2025 Iron (Unsp spec) [Mass/Mass] 73 ug/dL 50-170 [facility] LDL calc ser/plasOrdered By: Dorinda Barney on 02-19-2025 Cholesterol in LDL [Mass/Vol] 99 mg/dL [facility] Comment on above: Apdqgbfhnx=569-034 m g/dL & Higher Kezd=267 mg/dL or greater Laboratory - Chemistry and C hemistry - challengeOrdered By: Dorinda Barney on 02-19-2025 AST [Catalytic activity/Vol] 21 U/L <32 [facility] Lipid Profileon 02-19-2025 CHOL:HDL 3.81 Normal [facility] Comment on above: Performed By: #### L 506.1001, L506.0400, L503.6550, L500.4050, L503.6150, L501.9520, L503.0106, L100.0100, L501.92207, L500.4100 #### [facility] [address] [place], [address] Cholesterol [Mass/Vol] 165 mg/dL Normal <=200 [facility] Comment on above: Result Comment: Chol esterol level, Desirable <200 mg/dL Borderline high cholesterol 200-239 mg/dL High cholesterol >=240 mg/dL Recommendations of the NCEP Adult Treatment Panel for the following risk-cutoff thresholds for the [place] population. Performed By: #### L 506.1001, L506.0400, L503.6550, L500.4050, L503.6150, L501.9520, L503.0106, L100.0100, L501.55190, L500.4100 #### [facility] [address] [place], [address] Cholesterol in HDL [Mass/Vol] 43 mg/dL Normal [facility] Comment on above: Result Comment: Estela onal Cholesterol Education Program (NCEP) guidelines: <40 mg/dL: Low HDL-cholesterol (major risk factor for CHD) >= 60 mg/dL: High HDL-cholesterol (negative risk factor for CHD) HDL-cholesterol is affected by a number of factors, e.g. smoking, exercise, hormones, sex and age. Performed By: #### L 506.1001, L506.0400, L503.6550, L500.4050, L503.6150, L501.9520, L503.0106, L100.0100, L501.86064, L500.4100 #### [facility] [address] [place], [address] Cholesterol in LDL [Mass/Vol] 99 mg/dL Normal [facility] Comment on above: Result Comment: Bord udumdm=107-025 mg/dL Higher Tufw=542 mg/dL or greater Performed By: #### L 506.1001, L506.0400, L503.6550, L500.4050, L503.6150, L501.9520, L503.0106, L100.0100, L501.02687, L500.4100 #### [facility] [address] [place], [address] Cholesterol in VLDL [Mass/Vol] 22 mg/dL Normal 5-40 [facility] Comment on above: Performed By: #### L 506.1001, L506.0400, L503.6550, L500.4050, L503.6150, L501.9520, L503.0106, L100.0100, L501.33031, L500.4100 #### [facility] [address] [place], [address] Triglyceride [Mass/Vol] 112 mg/dL Normal [facility] Comment on above: Result Comment: The drugs N-Acetylcysteine and Metamizole may falsely depress this assay. Normal range: <150 mg/dL Borderline High: 150-199 mg/dL High: 200-499 mg/dL Very High: >500 mg/dL Performed By: #### L 506.1001, L506.0400, L503.6550, L500.4050, L503.6150, L501.9520, L503.0106, L100.0100, L501.47432, L500.4100 #### [facility] [address] [place], [address] MCV (mean corpuscular volume ) determinationOrdered By: Dorinda Barney on 02-19-2025 MCV (RBC) [Entitic vol] 85.2 fL 81-99 [facility] Mean corpuscular hemoglobin (MCH) determinationOrdered By: Dorinda Barney on 02-19-2025 MCH (RBC) [Entitic mass] 28.6 pg 27.0-32.0 [facility] Mean corpuscular hemoglobin concentration (MCHC) determinationOrdered By: Dorinda Barney on 02-19-2025 MCHC (RBC) [Mass/Vol] 33.6 g/dL 32-36 [facility] Mean platelet volume determi nationOrdered By: Dorinda Barney on 02-19-2025 Platelet mean volume (Bld) [Entitic vol] 8.8 fL 6.2-12.0 [facility] Monocyte percentageOrdered B y: Dorinda Barney on 02-19-2025 Monocytes/100 WBC (Bld) 7.5 % 0-10 [facility] Neutrophil percentageOrdered By: Dorinda Barney on 02-19-2025 Neutrophils/100 WBC (Bld) 57.5 % 47-70 [facility] Nucleated red blood cell per centageOrdered By: Dorinda Barney on 02-19-2025 Nucleated RBC/100 WBC (Bld) [Ratio] 0 % 0-5 [facility] Platelet countOrdered By: Eulalia Barney on 02-19-2025 Platelets (Bld) [#/Vol] 264 10*3/uL 150-450 [facility] Potassium measurement (mass/ volume)Ordered By: Dorinda Barney on 02-19-2025 Potassium (Unsp spec) [Mass/Vol] 4.2 mmol/L 3.3-5.1 [facility] RBC Auto (Bld) [#/Vol]Ordere d By: Dorinda Barney on 02-19-2025 RBC (Bld) [#/Vol] 4.40 10*6/uL 4.2-5.[address] [facility] Screening total cholesterol/ high density lipoprotein (HDL) cholesterol ratioOrdered By: Dorinda Barney on 02-19-2025 Cholesterol.total/Chol esterol in HDL [Mass ratio] 3.81 {ratio} [facility] Serum creatinine measurement (mass/volume)Ordered By: Dorinda Barney on 02-19-2025 Creatinine [Mass/Vol] 0.89 mg/dL 0.70-1.20 [facility] Serum globulin measurementOr dered By: Dorinda Barney on 02-19-2025 Globulin (S) [Mass/Vol] 2.9 g/dL 2.2-4.2 [facility] Serum glucose measurement (m ass/volume)Ordered By: Dorinda Barney on 02-19-2025 Glucose [Mass/Vol] 87 mg/dL 70-99 [facility] Serum or plasma alanine das otransferase (ALT) measurementOrdered By: Dorinda Barney on 02-19-2025 ALT [Catalytic activity/Vol] 19 U/L <35 [facility] Serum or plasma albumin khadijah urement (mass/volume)Ordered By: Dorinda Barney on 02-19-2025 Albumin [Mass/Vol] 4.5 g/dL 3.5-5.0 [facility] Serum or plasma albumin/glob ulin mass ratioOrdered By: Dorinda Barney on 02-19-2025 Albumin/Globulin [Mass ratio] 1.6 {ratio} 0.9-2.4 [facility] Serum or plasma alkaline vicente sphatase measurementOrdered By: Dorinda Barney on 02-19-2025 ALP [Catalytic activity/Vol] 90 U/L 35-104 [facility] Serum or plasma calcium khadijah urement (mass/volume)Ordered By: Dorinda Barney on 02-19-2025 Calcium [Mass/Vol] 9.2 mg/dL 7.6-11.0 [facility] Serum or plasma cholesterol in HDL measurement (mass/volume)Ordered By: Dorinda Barney on 02-19-2025 Cholesterol in HDL [Mass/Vol] 43 mg/dL >40 [facility] Comment on above: National Cholesterol Education Program (NCEP) guidelines:<40 mg/dL: Low HDL-cholesterol (major risk factor for CHD)>= 60 mg/dL: High HDL-cholesterol (negative risk factor for CHD)HDL-cholesterol is affected by a number of factors, e.g. smoking, exercise, hormones, sex and age. Serum or plasma cholesterol measurement (mass/volume)Ordered By: Dorinda Barney on 02-19-2025 Cholesterol [Mass/Vol] 165 mg/dL <201 [facility] Comment on above: Cholesterol level, D esirable <200 mg/dLBorderline high cholesterol 200-239 mg/dLHigh cholesterol >=240 mg/dLRecommendations of the NCEP Adult Treatment Panel for the following risk-cutoff thresholds for the [place] population. Serum or plasma ferritin tucker surement (mass/volume)Ordered By: Dorinda Barney on 02-19-2025 Ferritin [Mass/Vol] 22 ng/mL 22-[address] [facility] Serum or plasma urea nitroge n measurement (mass/volume)Ordered By: Dorinda Barney on 02-19-2025 Urea nitrogen [Mass/Vol] 14 mg/dL 4-19 [facility] Sodium levelOrdered By: Dorinda Barney on 02-19-2025 Sodium [Moles/Vol] 137 mmol/L 133-145 [facility] T4 Free Directon 02-19-2025 T4 FREE DIRECT 1.10 ng/dL Normal 0.76-1.46 [facility] Comment on above: Performed By: #### L 501.55456, L506.0400, L501.9520 #### [facility] [address] [place], [place], [phone] T4 freeOrdered By: Dorinda Betts s on 02-19-2025 Free T4 [Mass/Vol] 1.10 ng/dL 0.76-1.46 [facility] TSH DL <= 0.005 mIU/L QnOrde red By: Dorinda Barney on 02-19-2025 TSH Qn 1.940 uIU/mL 0.300-4.20 0 [facility] Thyroid Stim Hormone (TSH)on 02-19-2025 TSH 1.940 uIU/mL Normal 0.300-4.20 0 [facility] Comment on above: Performed By: #### L 506.1001, L506.0400, L503.6550, L500.4050, L503.6150, L501.9520, L503.0106, L100.0100, L501.93744, L500.4100 #### [facility] [address] [place], [address] Total proteinOrdered By: Viky Barney on 02-19-2025 Protein [Mass/Vol] 7.3 g/dL 5.9-8.4 [facility] Triglycerides measurementOrd ered By: Dorinda Barney on 02-19-2025 Triglyceride [Mass/Vol] 112 mg/dL <199 [facility] Comment on above: The drugs N-Acetylcy steine and Metamizole may falsely depress this assay. Normal range: <150 mg/dLBorderline High: 150-199 mg/dLHigh: 200-499 mg/dLVery High: >500 mg/dL Vitamin B12on 02-19-2025 Cobalamin (Vitamin B12) [Mass/Vol] 685 pg/mL Normal 180-914 [facility] Comment on above: Performed By: #### L 501.91098, L506.0400, L501.9520 #### [facility] [address] [place], [place], [phone] Vitamin B12 ser/plasOrdered By: Dorinda Barney on 02-19-2025 Cobalamin (Vitamin B12) [Mass/Vol] 685 pg/mL 180-914 [facility] Vitamin D,25 Hydroxyon 02-19 Vitamin D 25-OH 33.1 ng/mL Normal 30-100 [facility] Comment on above: Result Comment: Sienna min D Status Deficiency: <20 ng/mL (50nmol/L) Insufficiency: 20-30 ng/mL (50-75 nmol/L) Sufficiency: 30-100 ng/mL (75-250 nmol/L) Toxicity: >100 ng/mL (>250 nmol/L) Performed By: #### L 501.49696, L506.0400, L501.9520 #### [facility] [address] [place], [place], [phone] White blood cell (WBC) count Ordered By: Dorinda Barney on 02-19-2025 WBC (Bld) [#/Vol] 5.2 10*3/uL 4.4-11.0 [facility] Laboratory - Microbiology an d Antimicrobial susceptibilityOrdered By: Stephen Daniels on 12-14-2024 SARS-CoV-2 (COVID-19) RNA TAL+probe Ql (Unsp spec) Not detected [facility] Office Visit Reporton 2024 Office Visit Report [facility] [address] [place] [address] OFFICE VISIT Date of Service: 12/14/24 MR#: [id number] Acct: [id number] Patient: FLAVIO GARCES Rep #: [id number] : 1980 Provider: NAEL Alfonso Age/Sex: 44/F Location: [facility] Status: Signed Employer Purchased Covid Test Note: Patient here today for Covid Testing, requested by their Employer. 12/14/24 1156 Date Stephen NAYAK Cosigner Signature: Date (if applicable) CC: Normal [facility] Free T3on 08-05-2024 Free T3 [Mass/Vol] 2.8 pg/mL Normal 2.18-3.98 [facility] Comment on above: Performed By: #### L 501.81419, L506.0400, L501.9520 #### [facility] [address] [place], [address] T4 Free Directon 08-05-2024 T4 FREE DIRECT 0.98 ng/dL Normal 0.76-1.46 [facility] Comment on above: Performed By: #### L 501.42926, L506.0400, L501.9520 #### [facility] [address] [place], [address] Thyroid Stim Hormone (TSH)on 08-05-2024 TSH 1.470 uIU/mL Normal 0.358-3.74 0 [facility] Comment on above: Performed By: #### L 501.61099, L506.0400, L501.9520 #### [facility] [address] [place], [address] Absolute lymphocyte countOrd ered By: Dorinda Barney on 05-25-2023 Lymphocytes Auto (Unsp spec) [#/Vol] 1.96 10*3/uL 0.83-4.51 [facility] Basophil percentageOrdered B y: Dorinda Barney on 05-25-2023 Basophils/100 WBC (Bld) 0.6 % 0-1 [facility] Bilirubin [Mass/Vol] 0.40 mg/dL 0.20-1.00 [facility] Comment on above: For patients on eltr ombopag therapy, use of Dimension Humbird TBIL is not recommended. Chloride [Moles/Vol] 109 mmol/L 98-107 [facility] Cholesterol [Mass/Vol] 161 mg/dL <200 [facility] Comment on above: <200 mg/dL Desirable 200-240 mg/dL Borderline >240 mg/dL High Risk Eosinophils/100 WBC (Bld) 2.2 % 0-5 [facility] Glucose [Mass/Vol] 92 mg/dL 74-106 [facility] Neutrophils (Bld) [#/Vol] 3.7 10*3/uL 2.0-7.7 [facility] Neutrophils/100 WBC (Bld) 58.7 % 47-70 [facility] Potassium [Moles/Vol] 4.1 mmol/L 3.5-5.1 [facility] Protein [Mass/Vol] 7.4 g/dL 6.4-8.2 [facility] Sodium [Moles/Vol] 139 mmol/L 136-145 [facility] Triglyceride [Mass/Vol] 182 mg/dL <199 [facility] Comment on above: The drugs N-Acetylcy steine and Metamizole may falsely depress this assay.Serum Triglycerides Reference Interval Normal <150 mg/dL Borderline high 150 - 199 mg/dL High 200 - 499 mg/dL Very High > or = 500 mg/dL WBC (Bld) [#/Vol] 6.2 10*3/uL 4.4-11.0 [facility] Blood erythrocytes count (nu mber/volume)Ordered By: Dorinda Barney on 05-25-2023 RBC (Bld) [#/Vol] 4.75 10*6/uL 4.2-5.4 [facility] [facility] Blood hemoglobin measurement (mass/volume)Ordered By: Dorinda Barney on 05-25-2023 Hemoglobin (Bld) [Mass/Vol] 13.6 g/dL 12.0-15.0 [facility] Blood lymphocytes/100 leukoc ytesOrdered By: Dorinda Barney on 05-25-2023 Lymphocytes/100 WBC (Bld) 31.5 % 19-41 [facility] Blood monocytes/100 leukocyt esOrdered By: Dorinda Barney on 05-25-2023 Monocytes/100 WBC (Bld) 6.7 % 0-10 [facility] Blood platelet mean volumeOr dered By: Dorinda Barney on 05-25-2023 Platelet mean volume (Bld) [Entitic vol] 8.9 fL 6.2-12.0 [facility] Determination of erythrocyte mean corpuscular volume (MCV)Ordered By: Dorinda Barney on 05-25-2023 MCV (RBC) [Entitic vol] 86.9 fL 81-99 [facility] Hematocrit Auto (Bld) [Volum e fraction]Ordered By: Dorinda Barney on 05-25-2023 Hematocrit (Bld) [Volume fraction] 41.3 % 37-47 [facility] Laboratory - Chemistry and C hemistry - challengeOrdered By: Dorinda Barney on 05-25-2023 ALP [Catalytic activity/Vol] 84 U/L 45-117 [facility] ALT [Catalytic activity/Vol] 20 U/L 13-56 [facility] CO2 [Moles/Vol] 27.0 mmol/L 21.0-32.0 [facility] Free T4 [Mass/Vol] 1.00 ng/dL 0.76-1.46 [facility] Globulin (S) [Mass/Vol] 3.4 g/dL 2.2-4.2 [facility] Urea nitrogen/Creatinine [Mass ratio] 17.4 mg/mg 10-20 [facility] Laboratory - Hematology and Cell countsOrdered By: Dorinda Barney on 05-25-2023 Erythrocyte distribution width (RBC) [Entitic vol] 38.3 fL 35.1-43.9 [facility] Erythrocyte distribution width (RBC) [Ratio] 11.9 % 11.6-14.6 [facility] Immature granulocytes/100 WBC (Bld) 0.300 % 0.0-0.9 [facility] Comment on above: IG% - Immature Granu locytes (promyelocytes, myelocytes and metamyelocytes) > 1% indicates that a LEFT SHIFT is Present. MCH (RBC) [Entitic mass] 28.6 pg 27.0-32.0 [facility] Nucleated RBC/100 WBC (Bld) [Ratio] 0 % 0-5 [facility] MCHC Auto (RBC) [Mass/Vol]Or dered By: Dorinda Barney on 05-25-2023 MCHC (RBC) [Mass/Vol] 32.9 g/dL 32-36 [facility] No Panel InformationOrdered By: Dorinda Barney on 05-25-2023 Estimated GFR (MDRD) Amer 93 mL/min >60 [facility] Comment on above: GFR Calc Estimated GFR (MDRD) Non-Af Amer 77 mL/min >60 [facility] Comment on above: Non- GFR Calc Free Triiodothyronine (T3) pg/dL 2.6 pg/mL 2.18-3.98 [facility] Thyroglobulin Antibody 1.0 IU/mL 0.0-0.9 [facility] Comment on above: Thyroglobulin Antibo dy measured by Camila CoulterMethodologyPerformed at: CB - [facility] [address] [id number] Director: Fabian Hunter PhD, Phone: [phone] Thyroid Stimulating Hormone (TSH) 3.12 uIU/mL 0.358-3.74 [facility] Platelets bldOrdered By: Viky Barney on 05-25-2023 Platelets (Bld) [#/Vol] 276 10*3/uL 150-450 [facility] Serum or plasma albumin khadijah urement (mass/volume)Ordered By: Dorinda Barney on 05-25-2023 Albumin [Mass/Vol] 4.0 g/dL 3.2-5.0 [facility] Serum or plasma albumin/glob ulin mass ratioOrdered By: Dorinda Barney on 05-25-2023 Albumin/Globulin [Mass ratio] 1.2 {ratio} 0.9-2.4 [facility] Serum or plasma calcium khadijah urement (mass/volume)Ordered By: Dorinda Barney on 05-25-2023 Calcium [Mass/Vol] 8.8 mg/dL 8.5-10.1 [facility] Serum or plasma cholesterol in HDL measurement (mass/volume)Ordered By: Dorinda Barney on 05-25-2023 Cholesterol in HDL [Mass/Vol] 47 mg/dL >40 [facility] Comment on above: The drugs N-Acetylcy steine and Metamizole may falsely depress this assay. Reference Range HDL <40 mg/dL Low HDL Cholesterol HDL >or= 60 mg/dL High HDL Cholesterol Serum or plasma cholesterol in VLDL measurement (mass/volume)Ordered By: Dorinda Barney on 05-25-2023 Cholesterol in VLDL [Mass/Vol] 36 mg/dL 5-40 [facility] Serum or plasma creatinine m easurement (mass/volume)Ordered By: Dorinda Barney on 05-25-2023 Creatinine [Mass/Vol] 0.86 mg/dL 0.55-1.02 [facility] Comment on above: The validity of the calculated GFR & GFRAA in patients over 70 years has not been determined. Clinical correlation is essential. Serum or plasma low density lipoprotein (LDL) cholesterol measurement (mass/volume)Ordered By: Dorinda Barney on 05-25-2023 Cholesterol in LDL [Mass/Vol] 78 mg/dL 0-130 [facility] Serum or plasma thyroperoxid ase antibody assay (units/volume)Ordered By: Dorinda Barney on 05-25-2023 TPO Ab Qn 29 [IU]/mL 0-34 [facility] Serum or plasma urea nitroge n measurement (mass/volume)Ordered By: Dorinda Barney on 05-25-2023 Urea nitrogen [Mass/Vol] 15 mg/dL 7-18 [facility] Thin prep Papanicolaou smear with manual screeningOrdered By: Dorinda Barney on 05-25-2023 Thin prep Papanicolaou smear with manual screening 17 U/L 15-37 [facility] Thin prep Papanicolaou smear with manual screening 3 5-15 [facility] Absolute lymphocyte countOrd ered By: Hector Juárez on 05-10-2023 Lymphocytes Auto (Unsp spec) [#/Vol] 2.65 10*3/uL 0.83-4.51 [facility] Basophil percentageOrdered B y: Hector Juárez on 05-10-2023 Basophils/100 WBC (Bld) 0.4 % 0-1 [facility] Chloride [Moles/Vol] 107 mmol/L 98-107 [facility] Eosinophils/100 WBC (Bld) 1.2 % 0-5 [facility] Glucose [Mass/Vol] 134 mg/dL 74-106 [facility] Comment on above: Fasting Glucose resu lt greater than or equal to 126 mg/dL suggests DIABETES MELLITUS per A.D.A. criteria. Neutrophils (Bld) [#/Vol] 5.9 10*3/uL 2.0-7.7 [facility] Neutrophils/100 WBC (Bld) 63.1 % 47-70 [facility] Potassium [Moles/Vol] 3.6 mmol/L 3.5-5.1 [facility] Sodium [Moles/Vol] 137 mmol/L 136-145 [facility] WBC (Bld) [#/Vol] 9.3 10*3/uL 4.4-11.0 [facility] Blood erythrocytes count (nu mber/volume)Ordered By: Hector Juárez on 05-10-2023 RBC (Bld) [#/Vol] 4.40 10*6/uL 4.2-5.[address] [facility] Blood hemoglobin measurement (mass/volume)Ordered By: Hector Juárez on 05-10-2023 Hemoglobin (Bld) [Mass/Vol] 13.0 g/dL 12.0-15.0 [facility] Blood lymphocytes/100 leukoc ytesOrdered By: Hector Juárez on 05-10-2023 Lymphocytes/100 WBC (Bld) 28.5 % 19-41 [facility] Blood monocytes/100 leukocyt esOrdered By: Hector Juárez on 05-10-2023 Monocytes/100 WBC (Bld) 6.5 % 0-10 [facility] Blood platelet mean volumeOr dered By: Hector Juárez on 05-10-2023 Platelet mean volume (Bld) [Entitic vol] 8.8 fL 6.2-12.0 [facility] Determination of erythrocyte mean corpuscular volume (MCV)Ordered By: Hector Juárez on 05-10-2023 MCV (RBC) [Entitic vol] 85.0 fL 81-99 [facility] Hematocrit Auto (Bld) [Volum e fraction]Ordered By: Hector Juárez on 05-10-2023 Hematocrit (Bld) [Volume fraction] 37.4 % 37-47 [facility] Laboratory - Chemistry and C hemistry - challengeOrdered By: Hector Juárez on 05-10-2023 CO2 [Moles/Vol] 23.0 mmol/L 21.0-32.0 [facility] Urea nitrogen/Creatinine [Mass ratio] 12.9 mg/mg 10-20 [facility] Laboratory - Hematology and Cell countsOrdered By: Hector Juárez on 05-10-2023 Erythrocyte distribution width (RBC) [Entitic vol] 37.8 fL 35.1-43.9 [facility] Erythrocyte distribution width (RBC) [Ratio] 12.4 % 11.6-14.6 [facility] Immature granulocytes/100 WBC (Bld) 0.300 % 0.0-0.9 [facility] Comment on above: IG% - Immature Granu locytes (promyelocytes, myelocytes and metamyelocytes) > 1% indicates that a LEFT SHIFT is Present. MCH (RBC) [Entitic mass] 29.5 pg 27.0-32.0 [facility] Nucleated RBC/100 WBC (Bld) [Ratio] 0 % 0-5 [facility] MCHC Auto (RBC) [Mass/Vol]Or dered By: Hector Juárez on 05-10-2023 MCHC (RBC) [Mass/Vol] 34.8 g/dL 32-36 [facility] No Panel InformationOrdered By: Hector Juárez on 05-10-2023 Estimated Creatinine Clearance Calc 70.56 ml/min [facility] Estimated GFR (MDRD) Amer 77 mL/min >60 [facility] Comment on above: GFR Calc Estimated GFR (MDRD) Non-Af Amer 64 mL/min >60 [facility] Comment on above: Non- GFR Calc Platelets bldOrdered By: Keke Juárez on 05-10-2023 Platelets (Bld) [#/Vol] 285 10*3/uL 150-450 [facility] Serum or plasma calcium khadijah urement (mass/volume)Ordered By: Hector Juárez on 05-10-2023 Calcium [Mass/Vol] 8.9 mg/dL 8.5-10.1 [facility] Serum or plasma creatinine m easurement (mass/volume)Ordered By: Hector Juárez on 05-10-2023 Creatinine [Mass/Vol] 1.01 mg/dL 0.55-1.02 [facility] Comment on above: The validity of the calculated GFR & GFRAA in patients over 70 years has not been determined. Clinical correlation is essential. Serum or plasma urea nitroge n measurement (mass/volume)Ordered By: Hector Juárez on 05-10-2023 Urea nitrogen [Mass/Vol] 13 mg/dL 7-18 [facility] Thin prep Papanicolaou smear with manual screeningOrdered By: Hector Juárez on 05-10-2023 Thin prep Papanicolaou smear with manual screening 7 - [facility] Vital Signs Date Time Vital Sign Value Performing Clinician Terri sharma 05-22-2025 11:23-0400 Body height 170.[address] Dorinda Barney DO Work Phone: [facility] 05-22-2025 11:23-0400 Body mass index (BMI) [Ratio] 38.7 kg/m2 Dr. Dorinda Barney DO Work Phone: [facility] 05-22-2025 11:23-0400 Body temperature 98.9 [degF] Dr. Dorinda Barney DO Work Phone: [facility] 05-22-2025 11:23-0400 Body weight 112.[address] Dorinda Barney DO Work Phone: [facility] 05-22-2025 11:23-0400 Diastolic blood pressure 86 mm[Hg] Dr. Dorinda Barney DO Work Phone: [facility] 05-22-2025 11:23-0400 Heart rate 103 /min Dr. Dorinda Barney DO Work Phone: [facility] 05-22-2025 11:23-0400 SaO2% (BldA) [Mass fraction] 97 % Dr. Dorinda Barney DO Work Phone: [facility] 05-22-2025 11:23-0400 Systolic blood pressure 142 mm[Hg] Dr. Dorinda Barney DO Work Phone: [facility] 05-10-2023 03:53-0400 Diastolic blood pressure 79 mm[Hg] Dr. Dorinda Barney Work Phone: [facility] 05-10-2023 03:53-0400 Heart rate 75 /min Dr. Dorinda Barney Work Phone: [facility] 05-10-2023 03:53-0400 Respiratory rate 17 /min Dr. Dorinda Barney Work Phone: [facility] 05-10-2023 03:53-0400 SaO2% (BldA) [Mass fraction] 100 % Dr. Dorinda Barney Work Phone: [facility] 05-10-2023 03:53-0400 Systolic blood pressure 138 mm[Hg] Dr. Dorinda Barney Work Phone: [facility] 05-10-2023 01:47-0400 Body height 170.[address] Dorinda Barney Work Phone: [facility] 05-10-2023 01:47-0400 Body mass index (BMI) [Ratio] 37.6 kg/m2 Dr. Dorinda Barney Work Phone: [facility] 05-10-2023 01:47-0400 Body temperature 97 [degF] Dr. Dorinda Barney Work Phone: [facility] 05-10-2023 01:47-0400 Body weight [address] Dorinda Barney Work Phone: [facility] 04-23-2023 08:19-0400 Body mass index (BMI) [Ratio] 37.9 kg/m2 Dr. Dorinda Barney Work Phone: [facility] 04-23-2023 08:19-0400 Body weight 109.[address] Dorinda Barney Work Phone: [facility] 04-23-2023 08:19-0400 Diastolic blood pressure 83 mm[Hg] Dr. Dorinda Barney Work Phone: [facility] 04-23-2023 08:19-0400 Systolic blood pressure 128 mm[Hg] Dr. Dorinda Barney Work Phone: [facility] Encounters Encounter Date Encounter Type Care Provider Facility Start: 06-02-2025 ambulatory Dorinda Barney Facility:[facility] Start: 05-22-2025 End: 05-22-2025 Patient encounter procedure Homer Munoz [facility] Work Phone: Start: 05-22-2025 End: 05-22-[address] Dorinda Barney DO Work Phone: [facility] Start: 03-15-2025 ambulatory Dorinda Barney Facility:[facility] Start: 02-19-2025 End: 02-19-[address] Dorinda Barney DO Work Phone: [facility] Work Phone: Start: 02-19-2025 End: 02-19-[address] Dorinda Barney DO -[facility] Work Phone: Start: 02-19-2025 End: 02-19-2025 ambulatory Dorinda Barney Facility:[facility] Start: 12-14-2024 End: 12-14-2024 ambulatory Dorinda Barney Facility:[facility] Start: 12-14-2024 End: 12-14-2024 Patient encounter procedure Stephen Daniels [place] -[facility] Work Phone: Start: 08-05-2024 End: 08-05-2024 ambulatory Dorinda Barney Facility:[facility] Start: 05-25-2023 End: 05-25-[address] Dorinda Barney Work Phone: [facility] Work Phone: Start: 05-25-2023 End: 05-25-[address] Dorinda Barney Work Phone: [facility]-Laboratory Work Phone: Start: 05-10-2023 End: 05-10-2023 Emergency department patient visit Dr. Dorinda Barney Work Phone: [facility]-Emergency Department Work Phone: Start: 04-23-2023 End: 04-23-[address] Dorinda Barney Work Phone: [facility] Work Phone: Start: 02-13-2023 End: 02-13-2023 ambulatory [facility] Work Phone: Start: 02-13-2023 End: 02-13-2023 Patient encounter procedure [facility]-Outpatient Breast Imaging Procedures Date Procedure Procedure Detail Performing Clinician Start: 02-19-2025 Vitamin D, 25-hydrox y measurement Dr. Dorinda Barney DO Work Phone: Comment on above: Vitamin D StatusDefi ciency: <20 ng/mL (50nmol/L)Insufficiency: 20-30 ng/mL (50-75 nmol/L)Sufficiency: 30-100 ng/mL (75-250 nmol/L)Toxicity: >100 ng/mL (>250 nmol/L) Start: 05-10-2023 CT angiography of head Dr. Dorinda Barney Work Phone: Start: 02-13-2023 Screening mammography H/O: surgery H/O ovarian cystectomy Dr. Dorinda Barney DO Work Phone: Comment on above: right ovarian remova l, no abnormalities on the cyst, normal ovarian tissue, just infarcting from torsion Plan of Treatment Date Care Activity Detail Author Patient Education Migraines and Cluster H eadaches [facility] Work Phone: Patient referral [facility] Work Phone: Immunizations Immunization Date Immunization Notes Care Provider Fa [facility] 08-31-2024 influenza, seasonal, injectable, preservative free Dr. Dorinda Barney DO Work Phone: [facility] 11-16-2020 Covid (Moderna) Dr. Dorinda mantilla DO Work Phone: [facility] 10-19-2020 Covid (Moderna) Dr. Dorinda mantilla DO Work Phone: [facility] 07-25-2011 hepatitis B vaccine, adult dosage Dr. Dorinda Barney DO Work Phone: [facility] 06-22-[address] Dorinda Barney DO Work Phone: [facility] 06-13-2011 hepatitis B vaccine, adult dosage Dr. Dorinda Barney DO Work Phone: [facility] 06-13-2011 tetanus toxoid, redu teto diphtheria toxoid, and acellular pertussis vaccine, adsorbed Dr. Dorinda Barney DO Work Phone: [facility] Payers Date Payer Category Payer Self-pay [id number] 2024 Unknown [id number] Unknown [facility] DO NOT USE 22 [id number] Unknown [id number] Unknown [id number] Unknown [id number] Unknown [id number] Unknown [id number] Unknown [id number] Social History Date Type Detail Facility Start: 10-10-2022 End: 05-10-2023 Tobacco smoking status NHIS Unknown if ever smoked [facility] Start: 05-10-2020 Non-smoker [facility] Start: 1980 Sex Assigned At Female [facility] Start: 02-24-2024 Tobacco smoking status NHIS Never smoked tobacco (finding) [facility] NEGATED: Highlighted row [facility] Medical Equipment Procedure Code Equipment Code Equipment Origin al Text Equipment Identifier Dates Salpingectomy, laparoscopic HEMOBLAST FLAKITO FDA Start: 02-24-2024 Salpingectomy, laparoscopic HEMOBLAST FLAKITO FDA Start: 02-24-2024 Mental Status Date Assessment Result Facility 05-10-2023 Cognitive function Level Of Cons ciousness Awake;Alert;Appropriate;Follow s Commands [facility] Work Phone: Chief complaint+Reason for visit Narrative 12-14-2024 Note Date & Type Note Facility 12-14-2024 Chief complaint+R rosario for visit Narrative COVID-19 December 14, 2024 10:15am FASTING February 19, 2025 8:14a m [facility] Work Phone: Discharge summary Note Date & Type Note Facility Discharge summary Note Date/Time May 10, 2023 2:1 3am [facility] Medical Records Department [address] [place] [address] Emergency Department Summary 05/10/23 MR#: [id number] Acct: [id number] Name: FLAVIO GARCES Rep #:[id number] : 1980 42 From: Hector Juárez MD PCP: Dr. Dorinda Barney, DO Status:REG ER Location: ED HPI History of Present Illness Chief Complaint: Headache Informant: patient and spouse/S.O. Narrative Narrative: Healthy 42-year-old woke up around 1 or 2 hours ago with a severe bifrontal throbbing headache, disequilibrium/spinning, feeling off balance when she is walking, brief tinnitus in the left ear that is now gone and no other ear pain or hearing loss, photophobia, nausea and vomiting. She feels tingly all over her body both arms and legs. States she had a very mild headache when she went to bed but nothing like this and she did not have the other symptoms. No history of headaches. She states she is on a control pill which is relatively newfor her, and takes no other prescription medications. [facility] Medical History Acute conjunctivitis, right eye Acute frontal sinusitis, unspecified Acute otitis media, right Acute pharyngitis Contact with and (suspected) exposure to other viral communicable diseases Hay fever Otitis media, left Home Medications multivitamin 1 tab PO DAILY 04/20/20 [History Last Taken 05/10/23] desogestrel 0.15 mg-ethinyl estradiol 0.03 mg tablet (Apri) 1 tab PO QDAY #28 tabs 04/23/23 [Rx Last Taken Unknown] metoclopramide HCl 10 mg tablet 10 mg PO Q6H PRN PRN Headache or nausea #20 tabs05/10/23 [Rx Last Taken Unknown] Allergy/AdvReac Type Severity Reaction Status Date / Time No Known Allergies Allergy Verified 05/10/23 01:46 Family History Father Parkinsons disease Grandmother Breast cancer Lupus Grandfather Myocardial infarction Sister Crohn's disease Daughter Spina bifida Unknown Breast cancer Surgical History Hx of section S/P bilateral salpingo-oophorectomy (~05/17/20) [place] teeth extracted Social History household members: spouse and children number of children: 4 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 physical disability history of recent travel: No sexually active: Yes Smoking Status: Never smoker alcohol intake: current alcohol intake frequency: a few times a month Alcohol type: wine substance use type: does not use caffeine: Yes what type of physical activity do you participate in: walking seatbelt use: always do you feel safe at home: Yes additional social history: - Liu Garces ([facility]-PT) ROS ROS ED Constitutional Constitutional ED: Denies chills or fever(s) Eyes Eyes: Reports photophobia; Denies blurry vision or diplopia ENT ENT ED: Reports as per HPI, disequillibrium, dizziness, tinnitus, vertigo and other Details: Seasonal allergies that are not an acute issue recently ; Denies ear pain, hearing loss, nasal congestion, nasal trauma, neck pain or sorethroat Cardiovascular Cardiovascular: Denies chest pain or palpitations Respiratory/Chest Respiratory/Chest: Denies cough or dyspnea Gastrointestinal Gastrointestinal: Reports nausea and vomiting; Denies abdominal pain or diarrhea Genitourinary Genitourinary ED: Denies dysuria or urinary frequency Musculoskeletal Musculoskeletal: Denies back pain or myalgias Integumentary Denies abscess or rash Neurologic Neurologic: Reports headache(s) and paresthesias RUE, RLE, LUE and LLE; Denies weakness Psychiatric Psychiatric: Reports anxiety; Denies suicidal ideation EXAM Physical Exam Const Vital Signs: 05/10/23 01:47 Temperature 97.0 F L Temperature Source Temporal Pulse Rate 88 Respiratory Rate 18 Blood Pressure 150/99 H Blood Pressure Mean 116 Pulse Ox 100 Oxygen Delivery Method Room Air Positive well nourished and well developed Constitutional Narrative: Uncomfortable hyperventilating, increased psychomotor agitation moving all 4 extremities while lying in bed and moaning in discomfort General Appearance ED: well developed HEENT Reports normocephalic, TM's clear and moist mucous membranes atraumatic Tympanic Membrane ED: Yes TM's clear Eyes PERRL, EOMs intact bilaterally and conjunctivae normal Eyes Narrative: photophobia. No pathologic nystagmus. Neck no lymphadenopathy, supple and no meningeal signs General: Negative for tenderness Resp normal respiratory effort and clear to auscultation bilaterally GI non-tender and non-distended Palpation: soft Extremity normal to inspection and full ROM Neuro oriented x3 and CN's II-XII intact bilaterally Neuro Narrative: Normal speech and comprehension. Normal [id number] and [id number] bilaterally. Negative Fifi-Hallpike bilaterally. Sensorium / Orientation: awake and alert Speech: speech normal Gait (Neuro): normal gait Motor Exam: strength 5/5 throughout Psych mental status grossly normal Mood & Affect: anxious Skin Lesions: no lesions Rashes: no rashes MDM MDM MDM Narrative Medical decision making narrative: Patient looking very uncomfortable, mildly hypertensive, woken up by severe headache with vertiginous symptoms, and no exam evidence of central etiology. Since she does not usually have headaches like this and it was suddenly severe that woke her up, I sent her for CT angiography of the head which includes a plain CT. It is negative for bleed and negative for acute aneurysm, I reviewed the images and report which I agree with. In the meantime basic labs were obtained which are normal, and she was treated for a possible migraine empirically with IV fluids, Reglan, Benadryl. On reevaluation she is feeling much better. Given the negative work-up, this is likely a migraine headache related to her new control pills/exogenous female hormones. Advised to follow-up with her doctor, I will give her prescription for Reglan to use as needed for nausea. Lab Data Attestation: I reviewed the patient's lab results. Labs: Laboratory Results - last 24 hr 05/10/23 02:12 WBC 9.3 RBC 4.40 Hgb 13.0 Hct 37.4 MCV 85.0 MCH 29.5 MCHC 34.8 RDW Std Deviation 37.8 RDW Coeff of Gemma 12.4 Plt Count 285 MPV 8.8 Immature Gran % (Auto) 0.300 Neut % (Auto) 63.1 Lymph % (Auto) 28.5 [place] % (Auto) 6.5 Eos % (Auto) 1.2 Baso % (Auto) 0.4 Absolute Neuts (auto) 5.9 Absolute Lymphs (auto) 2.65 Nucleated RBC % 0 Sodium 137 Potassium 3.6 Chloride 107 Carbon Dioxide 23.0 Anion Gap 7 BUN 13 Creatinine 1.01 Estim Creat Clear Calc 70.56 Est GFR (MDRD) Af Amer 77 Est GFR (MDRD) Non-Af 64 BUN/Creatinine Ratio 12.9 Glucose 134 H Calcium 8.9 Radiography Diagnostic Testing: Clinical Impression(s) from Imaging Studies Head CTA 05/10/23 02:08 IMPRESSION: Negative CT Brain with and without contrast. Electronically Signed: Roberto Lazaro MD at 3:35 EDT Reading Location ID and State: [facility] / [place] Tel , Service support , Discharge Plan Triage Chief Complaint: Headache ED Provider: Hector Juárez Dx/Rx/DC Orders Clinical Impression: Headache, migraine Instructions: Migraines and Cluster Headaches Prescriptions: New metoclopramide HCl [metoclopramide HCl] 10 mg tablet 10 mg PO Q6H PRN PRN (Reason: Headache or nausea) Qty: 20 0RF No Action multivitamin Tablet 1 tab PO DAILY desogestrel-ethinyl estradiol [Apri] 0.15-0.03 mg tablet 1 tab PO QDAY Qty: 28 12RF Primary Care Provider: Dorinda Barney Referrals: Dorinda Barney DO [Primary Care Provider] - 3-5 Days if not improving Disposition Disposition: Home, Self Care What to do if you have Problems For any increased pain, shortness of breath, bleeding, nausea or vomiting, chestpain, or any unexpected problems, contact your Primary Care Provider. Call [facility] ([phone]) or report to the closest Emergency Room. Call 911 if necessary. 05/10/23 0339 <Electronically signed by Hector Juárez MD> Cosigner Signature (if applicable): CC: Dr. Dorinda Barney DO ~ Signed [facility] Work Phone: Evaluation note Note Date & Type Note Facility Evaluation note No assessment information availa ble [facility] Work Phone: Evaluation note Note Date & Type Note Facility Evaluation note Diagnosis Onset Date Climacteric acute Encounter for routine gyneco logical examination noneactive [facility] Work Phone: Reason for referral (narrative) Note Date & Type Note Facility Reason for referral (narrative) No reason for referral information available [facility] Work Phone: Chief Complaint and Reason for Visit Chief Complaint SCREENING Chief Complaint SCREENING Annual ([employer]) headache Reason for Visit Climacteric Encounter for routine gynecological examination Chief Complaint Admit Date FASTING February 19, 2025 8:14a m R EAR PAIN May 22, 2025 11 :08am Family History No Family History Records Found Relationship Condition Age at Onset Recorded Date/T mónica father Parkinson's disease Unknown grandmother Malignant neoplasm of breast Unknown Lupus Unknown grandfather Myocardial infarction Unknown sister Crohn's disease Unknown daughter Spina bifida Unknown Not Specified Malignant neoplasm of breast Unknown Relationship Condition Age at Onset Recorded Date/T mónica father Parkinson's disease Unknown grandmother Malignant neoplasm of breast Unknown Lupus Unknown grandfather Myocardial infarction Unknown sister Crohn's disease Unknown daughter Spina bifida Unknown unrelated friend Malignant neoplasm of breast Unknown Advance Directives No Advanced Directives Records Found Advance Directive Response Recorded Date/ Time Living Will No May 10, 2020 2:07pm Power of [employer] Driver No May 10 2:07pm Advance Directive Response Recorded Date/ Time Living Will No May 10, 2023 1:49am Power of [employer] No May 10 1:49am Summary Purpose Additional Source Comments Care Teams (unrecognized sec tion and content) Team Status: Active Member Role Status Dates No Primary Care Physician Family Provider Active Dr. Dorinda Barney DO Primary Care Provider Active Team Status: Inactive Member Role Status Dates Dr. Dorinda Barney DO Primary Care Provider Active Dr. Mirna Swann MD Attending Provider, Referr ing Provider Active Team Status: Inactive Member Role Status Dates Dr. Dorinda Barney DO Primary Care Provider, Referring P neva Active Dr. Mirna Swann MD Attending Provider Active Team Status: Inactive Member Role Status Dates Dr. Dorinda Barney DO Primary Care Provider Active Dr. Hector Juárez MD Emergency Provider Active Team Status: Inactive Member Role Status Dates Dr. Dorinda Barney DO Primary Care Provider Active Dr. Hector Juárez MD Attending Provider, Emergency Provider Active Team Status: Inactive Member Role Status Dates Dr. Dorinda Barney DO Primary Care Provide r, Attending Provider, Referring Provider Active Team Status: Inactive Member Role Status Dates Dr. Dorinda Barney DO Primary Care Provider Active Start: December 14, 2024 End: December 14, 2024 Dr. Dorinda Barney DO Referring Provider Active St art: December 14, 2024 End: December 14, 2024 Stephen NAYAK PA Attending Provider Active Start: December 14, 2024 End: December 14, 2024 Team Status: Inactive Member Role Status Dates Dr. Dorinda Barney DO Primary Care Provider Active Start: February 19, 2025 End: February 19, 2025 Dr. Dorinda Barney DO Attending Provider Active St art: February 19, 2025 End: February 19, 2025 Dr. Dorinda Barney DO Referring Provider Active St art: February 19, 2025 End: February 19, 2025 Team Status: Active Member Role/Relationship Status Dates No Primary Care Physician Family Provider Active Dr. Dorinda Barney DO Primary Care Provider Active Team Status: Inactive Member Role/Relationship Status Dates Dr. Dorinda Barney DO Primary Care Provider Active Start: February 19, 2025 End: February 19, 2025 Dr. Dorinda Barney DO Attending Provider Active St art: February 19, 2025 End: February 19, 2025 Dr. Dorinda Barney DO Referring Provider Active St art: February 19, 2025 End: February 19, 2025 Team Status: Inactive Member Role/Relationship Status Dates Dr. Dorinda Barney DO Primary Care Provider Active Start: May 22, 2025 End: May 22, 2025 Dr. Dorinda Barney DO Referring Provider Active St art: May 22, 2025 End: May 22, 2025 NAEL Madrigal Attending Provider Active Start: May 22, 2025 End: May 22, 2025 Goals (unrecognized section and content) Goals may be documented in a n alternate sectionGoals may be documented in an alternate sectionGoals may be documented in an alternate sectionGoals may be documented in an alternate sectionGoals may be documented in an alternate section INFORMATION SOURCE (unrecogn ized section and content) DATE CREATED AUTHOR 06/04/2025 [facility] FOR RECORDS PERTAINING TO PATIENTS WHO ARE OR HAVE BEEN ENROLLED IN A CHEMICAL DEPENDENCY/SUBSTANCEABUSE PROGRAM, SOME INFORMATION MAY BE OMITTED. This clinical summary was aggregated from multiple sources. Caution should be exercised in using it in the provision of clinical care. This summary normalizes information from multiple sources, and as a consequence, information in this document may materially change the coding, format and clinical context of patient data. In addition, data may be omitted in some cases. CLINICAL DECISIONS SHOULD BE BASED ON THE PRIMARY CLINICAL RECORDS. [facility]. provides no warranty or guarantee of the accuracy or completeness of information in this document.
== END | disposition home or self-care (01) ==
LOC: BFHLAB 10:28
PROVIDERS: PCP Family Medicine; Visit Provider Family Medicine
DX: R51.9 Headache, unspecified (principal); E03.9 Hypothyroidism, unspecified
CPT/HCPCS: 36415; 80053; 84439; 84443; 84481; 85025